=== PATIENT | female | born 1945 | race Caucasian/White ===

== ENCOUNTER 2022-04-03 15:30 | Inpatient (IN) | payer MEDICARE ==
[2022-04-03 16:12] LABS: Basophils % (A) 1 %; Eosinophils # (A) 0.1 k/uL (0-0.7); Eosinophils % (A) 1 %; HCT 32.2 % (34.0-46.0); HGB 11.7 gm/dL (11.4-16.0); Lymphocytes # (A) 1.3 k/uL (1.0-4.8); Lymphocytes % (A) 15 %; MCH 33.5 pg (25.0-35.0); MCHC 36.3 g/dL (31.0-37.0); MCV 92.1 fL (80.0-100.0); Mean Platelet Volume 7.7; Monocytes # (A) 0.3 k/uL (0-1.0); Monocytes % (A) 4 %; Neutrophils # (A) 6.8 k/uL (1.3-7.7); Neutrophils % (A) 78 %; Platelet Count 265 k/uL (150-450); RDW 12.8 % (11.5-15.5); WBC 8.7 k/uL (3.8-10.6)
[2022-04-03 16:21] LABS: INR 0.9 (<1.2); Partial Thromboplastin Time 22.2 sec (22.0-30.0); Prothrombin Time 10.2 sec (9.0-12.0)
[2022-04-03 16:24] LABS: Albumin 4.1 g/dL (3.5-5.0); Magnesium 2.4 mg/dL (1.6-2.3); Phosphorus 4.1 mg/dL (2.5-4.5); Potassium 3.7 mmol/L (3.5-5.1); Total Bilirubin 0.5 mg/dL (0.2-1.3); Total Protein 6.5 g/dL (6.3-8.2)
[2022-04-03 16:25] LABS: Appearance,Urine Cloudy (Clear); Bacteria,Urine Few /hpf; Bilirubin,Urine Negative (Negative); Blood,Urine Negative (Negative); Calcium Oxalate Crystals,Urine Few /hpf; Color,Urine Yellow; Glucose,Urine (UA) Negative (Negative); Granular Casts,Urine 7 /lpf (0); Hyaline Casts,Urine 15 /lpf (0-2); Ketones,Urine Negative (Negative); Leukocyte Esterase,Urine Large (Negative); Mucus,Urine Rare /hpf; Nitrite,Urine Negative (Negative); PH, Urine 5.5 (5.0-8.0); Protein,Urine 1+ (Negative); RBC,Urine 18 /hpf (0-5); Specific Gravity,Urine 1.017 (1.001-1.035); Squamous Epithelial Cell,Urine <1 /hpf (0-4); Urobilinogen,Urine <2.0 mg/dL (<2.0); WBC,Urine 50 /hpf (0-5)
[2022-04-03 16:33] LABS: Calcium 14.5 mg/dL (8.4-10.2)
--- NOTE | 2022-04-03 17:06 | XR ---
EXAMINATION TYPE: XR chest 2V DATE OF EXAM: 04/03/2022 COMPARISON: NONE HISTORY: Weakness TECHNIQUE: 2 views FINDINGS: Heart is normal. Lungs are clear of infiltrate. No heart failure. Thoracic aorta is atherom atous. There is aortic valve surgery. There is slight blunting left costophrenic angle. There are no hilar masses. IMPRESSION: Minimal pleural reaction left lung base. Normal heart.
[2022-04-03] MEDS ORDERED: CALCITONIN INJ 200 UNIT/ML (MDV) VIAL IM ONE (17:27)
[2022-04-03] MEDS ORDERED: SODIUM CHLORIDE 0.9% 1,000 ML IV STA (18:16)
--- NOTE | 2022-04-03 18:16 | ED ---
Weakness HPI - General Chief complaint: Weakness Stated complaint: urogenital Time Seen by Provider: 04/03/22 17:26 Source: patient, RN notes reviewed Mode of arrival: ambulatory Limitations: no limitations - History of Present Illness Initial comments: This is a 76-year-old female who presents to the emergency department for weakness. Her [id number] states that for the last 3-4 weeks, she has been increasingly weak and not wanting to get out of bed. She saw her primary care provider yesterday for a physical, and was told that she had significantly impaired renal function. She was then instructed to come to the emergency department. Patient states that she has baseline kidney problems, however they are much worse than they typically are. We do not have a baseline value for her, although we know is that they are not typically this bad. The patient also denies any known history of hypercalcemia. Additionally, she feels like she may be urinating less than normal. Denies any fevers, chills, sore throat, cough, dyspnea, chest pain, palpitations, abdominal pain, nausea, vomiting, diarrhea, back pain, or headaches. MD Complaint: generalized weakness, lack of energy Onset/Timin -: week(s) - Related Data Home Medications Medication Instructions Recorded Confirmed Cetirizine HCl 10 mg PO DAILY 04/03/22 04/03/22 Cholecalciferol [Vitamin D3 (25 25 mcg PO DAILY 04/03/22 04/03/22 Mcg = 1000 Iu)] Clopidogrel [Plavix] 75 mg PO DAILY 04/03/22 04/03/22 Isosorbide Mononitrate ER [Imdur] 30 mg PO DAILY 04/03/22 04/03/22 Metoprolol Succinate [Metoprolol 25 mg PO DAILY 04/03/22 04/03/22 Succinate ER] Vitamin B Complex 1 cap PO DAILY 04/03/22 04/03/22 Vitamin E (Dl,Tocopheryl Acet) 400 unit PO DAILY 04/03/22 04/03/22 [Vitamin E (400 Iu = 180 mg)] amLODIPine [Norvasc] 5 mg PO DAILY 04/03/22 04/03/22 flaxseed oiL [[place]-3 Flaxseed Oil] 1,000 mg PO DAILY 04/03/22 04/03/22 Allergies Allergy/AdvReac Type Severity Reaction Status Date / Time No Known Allergies Allergy Verified 04/03/22 18:53 Review of Systems ROS Statement: Those systems with pertinent positive or pertinent negative responses have been documented in the HPI. ROS Other: All systems not noted in ROS Statement are negative. Past Medical History Past Medical History: Coronary Artery Disease (CAD), Chest Pain / Angina, Diabetes Mellitus, Myocardial Infarction (ND) Additional Past Medical History / Comment(s): KIDNEY INSUFFICENCY History of Any Multi-Drug Resistant Organisms: None Reported Past Surgical History: Appendectomy, Joint Replacement Additional Past Surgical History / Comment(s): CARDIAC STENTS Past Psychological History: No Psychological Hx Reported Smoking Status: Never smoker Past Alcohol Use History: None Reported Past Drug Use History: None Reported General Exam Limitations: no limitations General appearance: alert, in no apparent distress Head exam: Present: atraumatic, normocephalic, normal inspection Respiratory exam: Present: normal lung sounds bilaterally. Absent: respiratory distress, wheezes, rales, rhonchi, stridor Cardiovascular Exam: Present: regular rate, normal rhythm, normal heart sounds. Absent: systolic murmur, diastolic murmur, rubs, gallop, clicks Neurological exam: Present: alert, oriented X3, CN II-XII intact Psychiatric exam: Present: normal affect, normal mood Skin exam: Present: warm, dry, intact, normal color. Absent: rash Course Vital Signs 04/03/22 04/03/22 15:43 18:51 Temperature 98.6 F Pulse Rate 78 64 Respiratory 20 18 Rate Blood Pressure 133/68 160/86 O2 Sat by Pulse 98 97 Oximetry Medical Decision Making - Medical Decision Making This is a 76-year-old female who presents to the emergency department for weakness. Patient is noted to be in renal failure with a GFR of 10 and creatinine of 4.04. Additionally, she has hypercalcemia with a value of 14.5. She was given 400 units of calcitonin and a liter of IV fluids. Chest x-ray reveals a minimal pleural reaction of the left lung base. I spoke with Dr. Crespo, nephrology, who advised 150 mL of maintenance IV fluids with 60 mg of alendronate. We do not have alendronate available, and the patient was subsequently given 5 mg of Zoledronate. CMP and magnesium will be rechecked in the morning. All vitamin D and calcium supplements will be held for the mean time. PTH and vitamin D level pending. Patient will be admitted to medicine with nephrology consult for management of acute on chronic renal failure and hypercalcemia. This case was discussed in detail with the attending ED physician. Presentation, findings, and treatment plan discussed in detail as well. - Lab Data Result diagrams: 04/03/22 16:04 04/03/22 16:04 Lab Results 04/03/22 04/03/22 04/03/22 Range/Units 16:04 16:04 16:04 WBC 8.7 (3.8-10.6) k/uL RBC 3.50 L (3.80-5.40) m/uL Hgb 11.7 (11.4-16.0) gm/dL Hct 32.2 L (34.0-46.0) % MCV 92.1 (80.0-100.0) fL MCH 33.5 (25.0-35.0) pg MCHC 36.3 (31.0-37.0) g/dL RDW 12.8 (11.5-15.5) % Plt Count 265 (150-450) k/uL MPV 7.7 Neutrophils % 78 % Lymphocytes % 15 % Monocytes % 4 % Eosinophils % 1 % Basophils % 1 % Neutrophils # 6.8 (1.3-7.7) k/uL Lymphocytes # 1.3 (1.0-4.8) k/uL Monocytes # 0.3 (0-1.0) k/uL Eosinophils # 0.1 (0-0.7) k/uL Basophils # 0.0 (0-0.2) k/uL PT 10.2 (9.0-12.0) sec INR 0.9 (<1.2) APTT 22.2 (22.0-30.0) sec Sodium 136 L (137-145) mmol/L Potassium 3.7 (3.5-5.1) mmol/L Chloride 100 (98-107) mmol/L Carbon Dioxide 23 (22-30) mmol/L Anion Gap 13 mmol/L BUN 36 H (7-17) mg/dL Creatinine 4.04 H (0.52-1.04) mg/dL Est GFR (CKD-EPI)AfAm 12 (>60 ml/min/1.73 sqM) Est GFR (CKD-EPI)NonAf 10 (>60 ml/min/1.73 sqM) Glucose 125 H (74-99) mg/dL Calcium 14.5 H* (8.4-10.2) mg/dL Phosphorus 4.1 (2.5-4.5) mg/dL Magnesium 2.4 H (1.6-2.3) mg/dL Total Bilirubin 0.5 (0.2-1.3) mg/dL AST 22 (14-36) U/L ALT 20 (4-34) U/L Alkaline Phosphatase 76 (38-126) U/L Troponin I (0.000-0.034) ng/mL NT-Pro-B Natriuret Pep pg/mL Total Protein 6.5 (6.3-8.2) g/dL Albumin 4.1 (3.5-5.0) g/dL TSH 0.048 L (0.465-4.680) mIU/L Urine Color Urine Appearance (Clear) Urine pH (5.0-8.0) Ur Specific [place] (1.001-1.035) Urine Protein (Negative) Urine Glucose (UA) (Negative) Urine Ketones (Negative) Urine Blood (Negative) Urine Nitrite (Negative) Urine Bilirubin (Negative) Urine Urobilinogen (<2.0) mg/dL Ur Leukocyte Esterase (Negative) Urine RBC (0-5) /hpf Urine WBC (0-5) /hpf Urine WBC Clumps (None) /hpf Ur Squamous Epith Cells (0-4) /hpf Calcium Oxalate Crystal (None) /hpf Urine Bacteria (None) /hpf Hyaline Casts (0-2) /lpf Granular Casts (0) /lpf Urine Mucus (None) /hpf 04/03/22 04/03/22 04/03/22 Range/Units 16:04 16:04 16:11 WBC (3.8-10.6) k/uL RBC (3.80-5.40) m/uL Hgb (11.4-16.0) gm/dL Hct (34.0-46.0) % MCV (80.0-100.0) fL MCH (25.0-35.0) pg MCHC (31.0-37.0) g/dL RDW (11.5-15.5) % Plt Count (150-450) k/uL MPV Neutrophils % % Lymphocytes % % Monocytes % % Eosinophils % % Basophils % % Neutrophils # (1.3-7.7) k/uL Lymphocytes # (1.0-4.8) k/uL Monocytes # (0-1.0) k/uL Eosinophils # (0-0.7) k/uL Basophils # (0-0.2) k/uL PT (9.0-12.0) sec INR (<1.2) APTT (22.0-30.0) sec Sodium (137-145) mmol/L Potassium (3.5-5.1) mmol/L Chloride (98-107) mmol/L Carbon Dioxide (22-30) mmol/L Anion Gap mmol/L BUN (7-17) mg/dL Creatinine (0.52-1.04) mg/dL Est GFR (CKD-EPI)AfAm (>60 ml/min/1.73 sqM) Est GFR (CKD-EPI)NonAf (>60 ml/min/1.73 sqM) Glucose (74-99) mg/dL Calcium (8.4-10.2) mg/dL Phosphorus (2.5-4.5) mg/dL Magnesium (1.6-2.3) mg/dL Total Bilirubin (0.2-1.3) mg/dL AST (14-36) U/L ALT (4-34) U/L Alkaline Phosphatase (38-126) U/L Troponin I <0.012 (0.000-0.034) ng/mL NT-Pro-B Natriuret Pep 95 pg/mL Total Protein (6.3-8.2) g/dL Albumin (3.5-5.0) g/dL TSH (0.465-4.680) mIU/L Urine Color Yellow Urine Appearance Cloudy H (Clear) Urine pH 5.5 (5.0-8.0) Ur Specific [place] 1.017 (1.001-1.035) Urine Protein 1+ H (Negative) Urine Glucose (UA) Negative (Negative) Urine Ketones Negative (Negative) Urine Blood Negative (Negative) Urine Nitrite Negative (Negative) Urine Bilirubin Negative (Negative) Urine Urobilinogen <2.0 (<2.0) mg/dL Ur Leukocyte Esterase Large H (Negative) Urine RBC 18 H (0-5) /hpf Urine WBC 50 H (0-5) /hpf Urine WBC Clumps Occasional H (None) /hpf Ur Squamous Epith Cells <1 (0-4) /hpf Calcium Oxalate Crystal Few H (None) /hpf Urine Bacteria Few H (None) /hpf Hyaline Casts 15 H (0-2) /lpf Granular Casts 7 (0) /lpf Urine Mucus Rare H (None) /hpf - Radiology Data Radiology results: report reviewed, image reviewed Disposition Clinical Impression: Hypercalcemia, Renal failure Disposition: ADMITTED IP TO THIS HOSP
[2022-04-03] MEDS ORDERED: oxyCODONE-APAP 5-325MG 1 EACH TAB PO PRN (18:25)
[2022-04-03] MEDS ORDERED: ACETAMINOPHEN TAB 325 MG TAB PO PRN (18:25)
[2022-04-03] MEDS ORDERED: ONDANSETRON 4 MG/2 ML VIAL IVP PRN (18:25)
[2022-04-03] MEDS ORDERED: NALOXONE 0.4 MG/ML 1 ML VIAL IV PRN (18:25)
[2022-04-03] MEDS ORDERED: ZOLEDRONIC ACID 4 MG in SODIUM CHLORIDE 0.9% 100 ML IV ONE (20:30)
[2022-04-03] MEDS: SODIUM CHLORIDE 0.9% 1,000 ML IV SCH (20:50)
[2022-04-03] MEDS: HYDROcodone/APAP 5-325MG 1 EACH TAB PO PRN (22:13)
[2022-04-04] MEDS: SODIUM CHLORIDE 0.9% 1,000 ML IV SCH ×4 (02:30→21:22)
[2022-04-04] MEDS: HYDROcodone/APAP 5-325MG 1 EACH TAB PO PRN (05:28)
[2022-04-04 06:53] LABS: Glucose,Whole Blood 109 mg/dL (70-110)
[2022-04-04] MEDS: ISOSORBIDE MONONITRATE ER 30 MG TAB.ER.24H PO SCH (08:37)
[2022-04-04] MEDS: amLODIPine 5 MG TAB PO SCH (08:37)
[2022-04-04] MEDS: METOPROLOL SUCCINATE (ER) 25 MG TAB.ER.24H PO SCH (08:37)
[2022-04-04] MEDS: CLOPIDOGREL 75 MG TAB PO SCH (08:37)
[2022-04-04] MEDS ORDERED: LORATADINE 10 MG TAB PO SCH (09:00)
--- NOTE | 2022-04-04 10:46 | P.NPCON ---
History of Present Illness - Reason for Consult acute renal failure, chronic renal failure - History of Present Illness Reason for consultation: Acute kidney injury on chronic kidney disease and hypercalcemia History of present illness: Patient is a 76-year-old female seated in consultation for acute kidney injury on chronic kidney disease and hypercalcemia. Patient recently changed primary care physician and was seen by her new physician yesterday. She had blood work done and was advised to go to the hospital due to renal failure and high calcium level. Patient states she was seen in cylinder batcher out of town and was told she had chronic kidney disease stage IV. Unknown baseline renal function. Creatinine this admission was 4.04 and calcium was 14.5. She denies history of malignancy. She denies use of thiazide diuretics. She does admit to taking 2000 units of vitamin D daily as well as a supplement containing calcium and vitamin D. Blood pressure has not been low. She is on room air. No edema. Has been voiding. No hematuria or dysuria. Denies use of nonsteroidals. She has been feeling weak the last few days. Oral intake has been just fair. Denies chest pain or shortness of breath. She does have history of coronary disease and had a stent placed in 2020. Son is present at bedside. Vital signs are stable. General: No acute distress. HEENT: Head exam is unremarkable. LUNGS: Breath sounds decreased. HEART: Rate and Rhythm are regular. ABDOMEN: Soft, no distention. EXTREMITITES: No edema. Past Medical History Past Medical History: Coronary Artery Disease (CAD), Chest Pain / Angina, Diabetes Mellitus Additional Past Medical History / Comment(s): KIDNEY INSUFFICENCY History of Any Multi-Drug Resistant Organisms: None Reported Past Surgical History: Appendectomy, Joint Replacement Additional Past Surgical History / Comment(s): CARDIAC STENTS Past Anesthesia/Blood Transfusion Reactions: No Reported Reaction Past Psychological History: No Psychological Hx Reported Smoking Status: Never smoker Past Alcohol Use History: None Reported Past Drug Use History: None Reported Medications and Allergies Home Medications Medication Instructions Recorded Confirmed Type Cetirizine HCl 10 mg PO DAILY 04/03/22 04/03/22 History Cholecalciferol [Vitamin D3 (25 25 mcg PO DAILY 04/03/22 04/03/22 History Mcg = 1000 Iu)] Clopidogrel [Plavix] 75 mg PO DAILY 04/03/22 04/03/22 History Isosorbide Mononitrate ER [Imdur] 30 mg PO DAILY 04/03/22 04/03/22 History Metoprolol Succinate [Metoprolol 25 mg PO DAILY 04/03/22 04/03/22 History Succinate ER] Vitamin B Complex 1 cap PO DAILY 04/03/22 04/03/22 History Vitamin E (Dl,Tocopheryl Acet) 400 unit PO DAILY 04/03/22 04/03/22 History [Vitamin E (400 Iu = 180 mg)] amLODIPine [Norvasc] 5 mg PO DAILY 04/03/22 04/03/22 History flaxseed oiL [[place]-3 Flaxseed Oil] 1,000 mg PO DAILY 04/03/22 04/03/22 History Allergies Allergy/AdvReac Type Severity Reaction Status Date / Time No Known Allergies Allergy Verified 04/03/22 18:53 Physical Exam Vitals: Vital Signs Temp Pulse Pulse Resp BP BP Pulse Ox 04/04/22 07:34 98.2 F 58 L 15 152/74 96 04/04/22 01:21 98.9 F 61 17 165/61 96 04/03/22 20:01 97.9 F 67 18 173/76 98 04/03/22 18:51 64 18 160/86 97 04/03/22 15:43 98.6 F 78 20 133/68 98 Intake and Output 04/03/22 04/04/22 04/04/22 22:59 06:59 14:59 Intake Total 220 1840 Balance 220 1840 Intake: Intake, IV Titration 100 1500 Amount Sodium Chloride 0.9% 1, 1500 000 ml @ 150 mls/hr IV . Q6H40M [facility] Rx#:[id number] Zoledronic Acid 4 mg In 100 Sodium Chloride 0.9% 100 ml @ 315 mls/hr IV ONCE ONE Rx#:[id number] Oral 120 340 Other: # Voids 2 2 Weight 58.967 kg Results - Lab Results Most recent lab results Calcium 14.5 mg/dL (8.4-10.2) H* 04/03/22 16:04 Phosphorus 4.1 mg/dL (2.5-4.5) 04/03/22 16:04 Magnesium 2.4 mg/dL (1.6-2.3) H 04/03/22 16:04 04/03/22 16:04 04/03/22 16:04 Assessment and Plan Plan: Assessment: 1. Acute kidney injury secondary to ATN secondary to hypercalcemia. Creatinine 4.04 on admission. UA shows granular casts suggestive of ATN. 2. Chronic kidney disease possibly stage IV. She was following with cylinder batcher out of town. 3. Hypercalcemia secondary to calcium and vitamin D supplementation. Vitamin D level 200. 4. Hypertension with chronic kidney disease. Stable. Plan: Maintain IV fluids. Check further workup for hypercalcemia. Stop calcium and vitamin D supplementation. Status post zoledronic acid given 04/03/2022. Also received dose of calcitonin. Avoid nephrotoxins. Continue to monitor renal function and urine output. Follow-up morning labs. Thank you for the consultation. I will continue to follow the patient with you during her hospital stay.
[2022-04-04 11:52] LABS: African American GFR (CKD) 13.5 (60.0-200.0); Albumin 3.5 g/dL (3.8-4.9); Albumin/Globulin Ratio 1.91 (1.60-3.17); Anion Gap 8.3 mmol/L (10.00-18.00); BUN/Creat Ratio 8.54 Ratio (12.00-20.00); Blood Urea Nitrogen 30.4 mg/dL (9.0-27.0); Calcium 11.7 mg/dL (8.7-10.3); Carbon Dioxide 23.8 mmol/L (20.0-27.5); Globulin 1.9 g/dL (1.6-3.3); Magnesium 2.3 mg/dL (1.5-2.4); Non-African American GFR(CKD) 11.6 (60.0-200.0); Potassium 3.8 mmol/L (3.5-5.5); Total Bilirubin 0.3 mg/dL (0.30-1.20); Total Protein 5.4 g/dL (6.2-8.2)
[2022-04-04] MEDS ORDERED: hydrALAZINE HCL 20 MG/ML 1 ML VIAL IVP PRN (12:08)
[2022-04-04 12:30] LABS: African American GFR (CKD) 14 (>60 ml/min/1.73 sqM); Anion Gap 10 mmol/L; Blood Urea Nitrogen 28 mg/dL (7-17); Calcium 11.5 mg/dL (8.4-10.2); Carbon Dioxide 23 mmol/L (22-30); Chloride 107 mmol/L (98-107); Glucose 107 mg/dL (74-99); Non-African American GFR(CKD) 12 (>60 ml/min/1.73 sqM); Potassium 3.6 mmol/L (3.5-5.1); Sodium 140 mmol/L (137-145)
[2022-04-04] MEDS ORDERED: POTASSIUM CHLORIDE ER 20 MEQ TAB.ER PO STA (15:38)
--- NOTE | 2022-04-04 17:27 | P.HPIM ---
History of Present Illness H&P Date: 04/04/22 Chief Complaint: Nausea This is a pleasant 76-year-old patient who follows with Dr. Marquez. Chronic stable medical conditions include CAD with stent this year, diabetes, CK D stage IV, hypertension, osteoarthritis. Progressive for last 3-4 weeks patient become increasingly weak. Poor appetite. Nausea. Itching. Normally has a bowel movement everyday. Also having some ur inary frequency. Tired rundown. Denies any fever and chills. Patient was given a dose of calcitonin and Zometa in the ER. For hypercalcemia. Review of systems: GEN.: Tired, decreased appetite EYES: None HEENT: None NECK: None RESPIRATORY: None CARDIOVASCULAR: None GASTROINTESTINAL: None GENITOURINARY: Urine frequency MUSCULOSKELETAL: Joint pains LYMPHATICS: None HEMATOLOGICAL: None PSYCHIATRY: None NEUROLOGICAL: None Past medical history to include: CAD stent this year,, hypertension, arthritis, diabetes Social history: No smoking or alcohol. Lives alone. Physical examination: VITAL SIGNS: 98.6, 78, 20, 1 33 x 68, 98% room air GENERAL: BMI 23.8, sitting up in chair awake, tired. EYES: Pupils equal. Conjunctiva palel. HEENT: External appearance of nose and ears normal, oral cavity grossly normal. NECK: JVD not raised; masses not palpable. HEART: First and second heart sounds are normal; no edema. LUNGS: Respiratory rate normal; clear to auscultation. ABDOMEN: Soft, nontender, liver spleen not palpable, no masses palpable. PSYCH: Alert and oriented x3; mood and affect normal. MUSCULOSKELETAL:No Clubbing/cyanosis;muscles-grossly intact, OA NEUROLOGICAL: Cranial nerves grossly intact; no facial asymmetry, power and sensation grossly intact. LYMPHATICS: No lymph nodes palpable in the axilla and neck INVESTIGATIONS, reviewed in the clinical context: WBC 8.7 hemoglobin 11.7 platelets 265 potassium 3.6 BUN 28 creatinine 3.53 April 03: Creatinine 4.04. Calcium 14.5 ionized calcium 7.8 Vitamin D 25-hydroxy 200 TSH 0.048 UA: Protein 1+, leukoesterase, WBC, bacteria EKG tracing personally reviewed by me-normal sinus rhythm. Chest x-ray film personally reviewed by me-no obvious infiltrates Assessment and plan: -Acute on chronic kidney disease from poor oral intake IV fluids. Nephrology consultation. KUMAR- -Severe hypercalcemia, patient is on vitamin D3, dehydrated: Patient receive Zometa and calcitonin in the ER. IV fluids -Chronic kidney disease stage IV from nephrosclerosis Patient's son cc this was as per the previous family doctor. We do not have a baseline creatinine. -CAD with history of stent earlier this year Plavix -Essential hypertension Toprol-XL, amlodipine -Primary osteoarthritis Tylenol -Nausea secondary to uremia from renal failure -Full code Stop vitamin D supplement. Resume home medications. IV fluids. Renal diet. Care was discussed with the patient and son at the bedside. Questions answered. Nephrology consulted. Past Medical History Past Medical History: Coronary Artery Disease (CAD), Chest Pain / Angina, Diabetes Mellitus Additional Past Medical History / Comment(s): KIDNEY INSUFFICENCY History of Any Multi-Drug Resistant Organisms: None Reported Past Surgical History: Appendectomy, Joint Replacement Additional Past Surgical History / Comment(s): CARDIAC STENTS Past Anesthesia/Blood Transfusion Reactions: No Reported Reaction Past Psychological History: No Psychological Hx Reported Smoking Status: Never smoker Past Alcohol Use History: None Reported Past Drug Use History: None Reported Medications and Allergies Home Medications Medication Instructions Recorded Confirmed Type Cetirizine HCl 10 mg PO DAILY 04/03/22 04/03/22 History Cholecalciferol [Vitamin D3 (25 25 mcg PO DAILY 04/03/22 04/03/22 History Mcg = 1000 Iu)] Clopidogrel [Plavix] 75 mg PO DAILY 04/03/22 04/03/22 History Isosorbide Mononitrate ER [Imdur] 30 mg PO DAILY 04/03/22 04/03/22 History Metoprolol Succinate [Metoprolol 25 mg PO DAILY 04/03/22 04/03/22 History Succinate ER] Vitamin B Complex 1 cap PO DAILY 04/03/22 04/03/22 History Vitamin E (Dl,Tocopheryl Acet) 400 unit PO DAILY 04/03/22 04/03/22 History [Vitamin E (400 Iu = 180 mg)] amLODIPine [Norvasc] 5 mg PO DAILY 04/03/22 04/03/22 History flaxseed oiL [[place]-3 Flaxseed Oil] 1,000 mg PO DAILY 04/03/22 04/03/22 History Allergies Allergy/AdvReac Type Severity Reaction Status Date / Time No Known Allergies Allergy Verified 04/03/22 18:53 Physical Exam Vitals: Vital Signs Temp Pulse Pulse Resp BP BP Pulse Ox 04/04/22 07:34 98.2 F 58 L 15 152/74 96 04/04/22 01:21 98.9 F 61 17 165/61 96 04/03/22 20:01 97.9 F 67 18 173/76 98 04/03/22 18:51 64 18 160/86 97 04/03/22 15:43 98.6 F 78 20 133/68 98 Intake and Output 04/03/22 04/04/22 04/04/22 22:59 06:59 14:59 Intake Total 220 1840 Balance 220 1840 Intake: Intake, IV Titration 100 1500 Amount Sodium Chloride 0.9% 1, 1500 000 ml @ 150 mls/hr IV . Q6H40M [facility] Rx#:[id number] Zoledronic Acid 4 mg In 100 Sodium Chloride 0.9% 100 ml @ 315 mls/hr IV ONCE ONE Rx#:[id number] Oral 120 340 Other: # Voids 2 2 Weight 58.967 kg Results CBC & Chem 7: 04/03/22 16:04 04/04/22 11:33 Labs: Abnormal Lab Results - Last 24 Hours (Table) 04/03/22 04/03/22 04/03/22 Range/Units 16:04 16:04 16:04 RBC 3.50 L (3.80-5.40) m/uL Hct 32.2 L (34.0-46.0) % Sodium 136 L (137-145) mmol/L BUN 36 H (7-17) mg/dL Creatinine 4.04 H (0.52-1.04) mg/dL Glucose 125 H (74-99) mg/dL Calcium 14.5 H* (8.4-10.2) mg/dL Ionized Calcium [place] (4.5-5.3) mg/dL Magnesium 2.4 H (1.6-2.3) mg/dL Vitamin D 25-Hydroxy 200.0 H (30.0-100.0) ng/mL TSH 0.048 L (0.465-4.680) mIU/L Urine Appearance (Clear) Urine Protein (Negative) Ur Leukocyte Esterase (Negative) Urine RBC (0-5) /hpf Urine WBC (0-5) /hpf Urine WBC Clumps (None) /hpf Calcium Oxalate Crystal (None) /hpf Urine Bacteria (None) /hpf Hyaline Casts (0-2) /lpf Urine Mucus (None) /hpf 04/03/22 04/03/22 Range/Units 16:11 18:51 RBC (3.80-5.40) m/uL Hct (34.0-46.0) % Sodium (137-145) mmol/L BUN (7-17) mg/dL Creatinine (0.52-1.04) mg/dL Glucose (74-99) mg/dL Calcium (8.4-10.2) mg/dL Ionized Calcium [place] 7.8 H* (4.5-5.3) mg/dL Magnesium (1.6-2.3) mg/dL Vitamin D 25-Hydroxy (30.0-100.0) ng/mL TSH (0.465-4.680) mIU/L Urine Appearance Cloudy H (Clear) Urine Protein 1+ H (Negative) Ur Leukocyte Esterase Large H (Negative) Urine RBC 18 H (0-5) /hpf Urine WBC 50 H (0-5) /hpf Urine WBC Clumps Occasional H (None) /hpf Calcium Oxalate Crystal Few H (None) /hpf Urine Bacteria Few H (None) /hpf Hyaline Casts 15 H (0-2) /lpf Urine Mucus Rare H (None) /hpf Microbiology - Last 24 Hours (Table) 04/03/22 16:11 Urine Culture - Preliminary Urine,Voided Thrombosis Risk Factor Assmnt - Choose All That Apply Other Risk Factors: Yes Each Risk Factor Represents 3 Points: Age 75 years or older Thrombosis Risk Factor Assessment Total Risk Factor Score: 3 Thrombosis Risk Factor Assessment Level: Moderate Risk
[2022-04-04] MEDS: ENOXAPARIN 30 MG/0.3 ML SYRINGE SQ SCH (18:01)
[2022-04-04 21:28] LABS: Protein, Total 5.5 g/dL (6.2-8.2)
[2022-04-05] MEDS: SODIUM CHLORIDE 0.9% 1,000 ML IV SCH ×3 (05:09→18:02)
--- NOTE | 2022-04-05 09:02 | CDI ---
Documentation Clarification Form Date: 04/05/2022 08:54:33 AM From: Tahmina Sheppard CCS, CCDS Admit Date: 04/03/2022 06:26:00 PM Patient Name: Judi Tipton Visit Number: [id number] Discharge Date: ATTENTION: The Clinical Documentation Specialists (CDI) and [facility] Coding Staff appreciate your assistance in clarifying documentation. Please respond to the clarification below the line at the bottom and electronically sign. The CDI & [facility] Coding staff will review the response and follow-up if needed. Please note: Queries are made part of the Legal Health Record. If you have any questions, please contact the author of this message via ITS. Dr. Scotty Carpio: Your patient had a Sodium level of 136 on admission 04/03, now stable @ 141, 140 on 04/04. Please clarify if there is an additional diagnosis and/or clinical significance related to this lab value. History/Risk Factors per the 04/04 H/P: CAD with stent this year, DM II, CKD IV, Hypertension, Primary Osteoarthritis. Clinical indicators: Presented to the ED on 04/03 with Weakness x3-4 weeks. Saw her PCP yesterday for a physical and was told she had significantly impaired renal function and sent to ED. Urinating less than normal. Admit with Hypercalcemia, Renal Failure. 04/03 LAB: Na 136, BUN 36, Creatinine 4.04, GFR 10. 04/04 LAB: Na 141, 140; Anion Gap 8.30, 10; BUN 30.4, 28; Creatinine 3.6, 3.53; GFR 11.6, 12. Treatment 04/03: IM Miacalcin, IV Na Chl 1,000 mls @ 999 mls/hr q1H. 04/03: IV Zoledronic Acid 4 mg in Na Chl 105 mls @ 315 mls/hr x1. Is there an additional diagnosis and/or clinical significance related to the above lab result/information? [ ] Hyponatremia [ ] Abnormal Lab Value, not clinically significant [ ] Other condition, please specify: [ ] Unable to determine (Template Last Revised: August 2020) No change in documentation needed MTDD
[2022-04-05] MEDS: ISOSORBIDE MONONITRATE ER 30 MG TAB.ER.24H PO SCH (09:22)
[2022-04-05] MEDS: METOPROLOL SUCCINATE (ER) 25 MG TAB.ER.24H PO SCH (09:22)
[2022-04-05] MEDS: amLODIPine 5 MG TAB PO SCH (09:22)
[2022-04-05] MEDS: CLOPIDOGREL 75 MG TAB PO SCH (09:22)
[2022-04-05 10:50] LABS: Free Kappa Lt Chain Qnt, Serum 2.99 mg/dL (0.33-1.94); Free Lambda Lt Chain Qnt, Seru 3.17 mg/dL (0.57-2.63)
--- NOTE | 2022-04-05 13:04 | P.PN ---
Subjective Patient is seen for follow-up for hypercalcemia from vitamin D toxicity. Calcium was down to 11.5 yesterday with serum creatinine down to 3.5 mg/dL. Labs are pending from today Maintained on IV fluids No significant complaints today. Objective - Vital Signs Vital signs: Vital Signs Temp 98.9 F 04/05/22 12:30 Pulse 57 L 04/05/22 12:30 Resp 21 04/05/22 12:30 BP 120/57 04/05/22 12:30 Pulse Ox 98 04/05/22 08:00 FiO2 Intake & Output 04/04/22 04/05/22 04/05/22 18:59 06:59 18:59 Intake Total 1200 1840 Balance 1200 1840 Intake: Intake, IV Titration 1200 1600 Amount Sodium Chloride 0.9% 1, 1200 1600 000 ml @ 150 mls/hr IV . Q6H40M [facility] Rx#:[id number] Oral 240 Other: Voiding Method Toilet # Voids 1 - Exam Awake, comfortable, not in any acute distress Examination of the heart S1 and S2 Examination of the lungs bilateral breath sounds are heard Abdomen is soft nontender Examination of lower extremity shows no significant edema [employer] exam grossly intact - Labs CBC & Chem 7: 04/03/22 16:04 04/04/22 11:33 Labs: Abnormal Lab Results - Last 24 Hours (Table) 04/03/22 04/04/22 Range/Units 18:51 11:33 Total Protein (PEP) 5.5 L (6.2-8.2) g/dL PTH Intact 8.0 L (14.0-72.0) pg/mL Free [place] LC, Quant 2.99 H (0.33-1.94) mg/dL Free Lambda LC, Quant 3.17 H (0.57-2.63) mg/dL Microbiology - Last 24 Hours (Table) 04/03/22 16:11 Urine Culture - Preliminary Urine,Voided Gram Neg Bacilli Assessment and Plan Assessment: 1. Acute kidney injury secondary to ATN secondary to hypercalcemia. Creatinine 4.04 on admission. UA shows granular casts suggestive of ATN. 2. Chronic kidney disease possibly stage IV. She was following with field marketing manager out of town. 3. Hypercalcemia secondary to calcium and vitamin D supplementation. Vitamin D level 200. 4. Hypertension with chronic kidney disease. Stable. Plan: Follow-up on labs from today Continue to hold off on calcium and vitamin D supplementation. Follow-up as outpatient in 1-2 weeks post discharge. Patient would like to follow-up at our [place] office.
--- NOTE | 2022-04-05 13:19 | P.PN ---
Progress Note - Text Progress Note Date: 04/05/22 Chief Complaint: Nausea This is a pleasant 76-year-old patient who follows with Dr. Marquez. Chronic stable medical conditions include CAD with stent this year, diabetes, CK D stage IV, hypertension, osteoarthritis. Progressive for last 3-4 weeks patient become increasingly weak. Poor appetite. Nausea. Itching. Normally has a bowel movement everyday. Also having some urinary frequency. Tired rundown. Denies any fever and chills. Patient was given a dose of calcitonin and Zometa in the ER. For hypercalcemia. Admitted with hypercalcemia, acute kidney injury on CAD. IV fluids. 04/05/2022: Up in a chair. Some improvement in diet. Some of the bedside. Getting normal saline. Patient will follow-up at the [facility]. UA finding suggestive of ATN. Labs pending from today. Active Medications Acetaminophen (Acetaminophen Tab 325 Mg Tab) 650 mg PO Q6HR PRN PRN Reason: Mild Pain or Fever > 100.5 Amlodipine Besylate (Amlodipine 5 Mg Tab) 5 mg PO DAILY [facility] Last Admin: 04/05/22 09:22 Dose: 5 mg Clopidogrel Bisulfate (Clopidogrel 75 Mg Tab) 75 mg PO DAILY [facility] Last Admin: 04/05/22 09:22 Dose: 75 mg Enoxaparin Sodium (Enoxaparin 30 Mg/0.3 Ml Syringe) 30 mg SQ Q24H [facility] Last Admin: 04/04/22 18:01 Dose: 30 mg Hydralazine HCl (Hydralazine Hcl 20 Mg/Ml 1 Ml Vial) 10 mg IVP Q6HR PRN PRN Reason: Blood Pressure - High Sodium Chloride (Saline 0.9%) 1,000 mls @ 150 mls/hr IV .Q6H40M [facility] Last Admin: 04/05/22 05:09 Dose: Not Given Isosorbide Mononitrate (Isosorbide Mononitrate Er 30 Mg Tab.Er.24h) 30 mg PO DAILY [facility] Last Admin: 04/05/22 09:22 Dose: 30 mg Metoprolol Succinate (Metoprolol Succinate (Er) 25 Mg Tab.Er.24h) 25 mg PO DAILY [facility] Last Admin: 04/05/22 09:22 Dose: 25 mg Naloxone HCl (Naloxone 0.4 Mg/Ml 1 Ml Vial) 0.2 mg IV Q2M PRN PRN Reason: Opioid Reversal Ondansetron HCl (Ondansetron 4 Mg/2 Ml Vial) 4 mg IVP Q8HR PRN PRN Reason: Nausea And Vomiting Past medical history to include: CAD stent this year,, hypertension, arthritis, diabetes Social history: No smoking or alcohol. Lives alone. Physical examination: VITAL SIGNS: 98.9, 57, 21, 120/57, 98% room air GENERAL: , sitting up in chair awake, having breakfast EYES: Pupils equal. Conjunctiva palel. HEENT: External appearance of nose and ears normal, oral cavity grossly normal. NECK: JVD not raised; masses not palpable. HEART: First and second heart sounds are normal; no edema. LUNGS: Respiratory rate normal; clear to auscultation. ABDOMEN: Soft, nontender, liver spleen not palpable, no masses palpable. PSYCH: Alert and oriented x3; mood and affect normal. MUSCULOSKELETAL:No Clubbing/cyanosis;muscles-grossly intact, OA INVESTIGATIONS, reviewed in the clinical context: WBC 8.7 hemoglobin 11.7 platelets 265 potassium 3.6 BUN 28 creatinine 3.53 April 03: Creatinine 4.04. Calcium 14.5 ionized calcium 7.8 Vitamin D 25-hydroxy 200 TSH 0.048 UA: Protein 1+, leukoesterase, WBC, bacteria EKG tracing personally reviewed by me-normal sinus rhythm. Chest x-ray film personally reviewed by me-no obvious infiltrates Assessment and plan: -Acute on chronic kidney disease from poor oral intake IV fluids. Nephrology consultation. KUMAR- -Severe hypercalcemia, patient is on vitamin D3, dehydrated: received Zometa and calcitonin in the ER. IV fluids -Chronic kidney disease stage IV from nephrosclerosis Patient's son said patient had stage IV kidney disease per previous doctor. We do not have a baseline creatinine. -CAD with history of stent earlier this year Plavix -Essential hypertension Toprol-XL, amlodipine -Primary osteoarthritis Tylenol -Nausea secondary to uremia from renal failure -Full code Continue IV fluids. Renal diet. Did like to follow up with nephrology at [facility]. Several questions were answered. Labs from today pending.
[2022-04-05 14:03] LABS: African American GFR (CKD) 15 (>60 ml/min/1.73 sqM); Anion Gap 8 mmol/L; Blood Urea Nitrogen 27 mg/dL (7-17); Calcium 9.9 mg/dL (8.4-10.2); Carbon Dioxide 21 mmol/L (22-30); Chloride 109 mmol/L (98-107); Glucose 104 mg/dL (74-99); Non-African American GFR(CKD) 13 (>60 ml/min/1.73 sqM); Potassium 3.8 mmol/L (3.5-5.1); Sodium 138 mmol/L (137-145)
[2022-04-05] MEDS: ENOXAPARIN 30 MG/0.3 ML SYRINGE SQ SCH (17:42)
[2022-04-06] MEDS: SODIUM CHLORIDE 0.9% 1,000 ML IV SCH ×3 (05:04→22:16)
[2022-04-06 07:05] LABS: Glucose,Whole Blood 83 mg/dL (70-110)
[2022-04-06 08:20] LABS: African American GFR (CKD) 16 (>60 ml/min/1.73 sqM); Anion Gap 7 mmol/L; Blood Urea Nitrogen 25 mg/dL (7-17); Calcium 8.8 mg/dL (8.4-10.2); Carbon Dioxide 18 mmol/L (22-30); Chloride 115 mmol/L (98-107); Glucose 77 mg/dL (74-99); Non-African American GFR(CKD) 14 (>60 ml/min/1.73 sqM); Potassium 3.7 mmol/L (3.5-5.1); Sodium 140 mmol/L (137-145)
--- NOTE | 2022-04-06 11:14 | P.PN ---
Subjective Patient is seen in follow-up for acute kidney injury on chronic kidney disease. Renal function improved. Calcium level normal. Denies chest pain or shortness of breath. Good urine output. Hemodynamically stable. No active complaints. Vital signs are stable. General: Awake. No acute distress. HEENT: Head exam is unremarkable. LUNGS: Breath sounds decreased. HEART: Rate and Rhythm are regular. ABDOMEN: Soft, no distention. EXTREMITITES: No edema. Objective - Vital Signs Vital signs: Vital Signs Temp 97.8 F 04/06/22 07:14 Pulse 57 L 04/06/22 08:59 Resp 13 04/06/22 08:59 BP 144/67 04/06/22 07:14 Pulse Ox 98 04/05/22 19:37 FiO2 Intake & Output 04/05/22 04/06/22 04/06/22 18:59 06:59 18:59 Intake Total 240 2200 450 Balance 240 2200 450 Intake: Intake, IV Titration 1600 Amount Sodium Chloride 0.9% 1, 1600 000 ml @ 150 mls/hr IV . Q6H40M [facility] Rx#:[id number] Oral 240 600 450 Other: Voiding Method Toilet Toilet # Voids 2 3 1 - Labs CBC & Chem 7: 04/03/22 16:04 04/06/22 07:06 Labs: Abnormal Lab Results - Last 24 Hours (Table) 04/05/22 04/06/22 Range/Units 13:24 07:06 Chloride 109 H 115 H (98-107) mmol/L Carbon Dioxide 21 L 18 L (22-30) mmol/L BUN 27 H 25 H (7-17) mg/dL Creatinine 3.20 H 3.04 H (0.52-1.04) mg/dL Glucose 104 H (74-99) mg/dL Microbiology - Last 24 Hours (Table) 04/03/22 16:11 Urine Culture - Final Urine,Voided Escherichia coli Assessment and Plan Plan: Assessment: 1. Acute kidney injury secondary to ATN secondary to hypercalcemia. Creatinine 4.04 on admission - 3.04 today. UA shows granular casts suggestive of ATN. 2. Chronic kidney disease possibly stage IV. She was following with client account assistant out of town. 3. Hypercalcemia secondary to calcium and vitamin D supplementation. PTH low at 8. Vitamin D level 200. 1,25 D3 level 59. Mena 2.99, Lambda 3.17. 4. Hypertension with chronic kidney disease. Stable. 5. Metabolic acidosis secondary to acute kidney injury and IV fluids. On oral bicarbonate. 6. E. coli UTI. Plan: Decrease rate of normal saline to 50 mL an hour. Follow-up pending workup for hypercalcemia. Continue to hold off on calcium and vitamin D supplementation. Status post zoledronic acid given 04/03/2022. Also received dose of calcitonin. Avoid nephrotoxins. Check renal ultrasound. Add Cipro for UTI. Continue to monitor renal function and urine output. Follow up outpatient 1 week post discharge.
[2022-04-06 11:28] LABS: Glucose,Whole Blood 134 mg/dL (70-110)
[2022-04-06 12:33] LABS: Albumin 3.35 g/dL (3.80-4.90); Gamma Globulin 0.58 g/dL (0.70-1.50)
[2022-04-06] MEDS: amLODIPine 5 MG TAB PO SCH (12:44)
[2022-04-06] MEDS: SODIUM BICARBONATE TAB 650 MG TAB PO SCH ×3 (12:44→22:16)
[2022-04-06] MEDS: CLOPIDOGREL 75 MG TAB PO SCH (12:44)
[2022-04-06] MEDS: CIPROFLOXACIN HCL 500 MG TAB PO SCH (12:45)
[2022-04-06] MEDS: ISOSORBIDE MONONITRATE ER 30 MG TAB.ER.24H PO SCH (12:45)
--- NOTE | 2022-04-06 14:01 | P.PN ---
Progress Note - Text Progress Note Date: 04/06/22 Chief Complaint: Nausea This is a pleasant 76-year-old patient who follows with Dr. Marquez. Chronic stable medical conditions include CAD with stent this year, diabetes, CK D stage IV, hypertension, osteoarthritis. Progressive for last 3-4 weeks patient become increasingly weak. Poor appetite. Nausea. Itching. Normally has a bowel movement everyday. Also having some urinary frequency. Tired rundown. Denies any fever and chills. Patient was given a dose of calcitonin and Zometa in the ER. For hypercalcemia. Admitted with hypercalcemia, acute kidney injury on CAD. IV fluids. 04/05/2022: Up in a chair. Some improvement in diet. Some of the bedside. Getting normal saline. Patient will follow-up at the [facility]. UA finding suggestive of ATN. Labs pending from today. 04/06/2022: Slight further improvement in creatinine. Saline at 50 mL an hour. Free And lambda light chain positive. Hematology consulted. Further blood work pending. Active Medications Acetaminophen (Acetaminophen Tab 325 Mg Tab) 650 mg PO Q6HR PRN PRN Reason: Mild Pain or Fever > 100.5 Amlodipine Besylate (Amlodipine 5 Mg Tab) 5 mg PO DAILY [facility] Last Admin: 04/06/22 12:44 Dose: 5 mg Ciprofloxacin (Ciprofloxacin Hcl 500 Mg Tab) 500 mg PO DAILY [facility]; Protocol Stop: 04/08/22 09:01 Last Admin: 04/06/22 12:45 Dose: 500 mg Clopidogrel Bisulfate (Clopidogrel 75 Mg Tab) 75 mg PO DAILY [facility] Last Admin: 04/06/22 12:44 Dose: 75 mg Enoxaparin Sodium (Enoxaparin 30 Mg/0.3 Ml Syringe) 30 mg SQ Q24H [facility] Last Admin: 04/05/22 17:42 Dose: 30 mg Hydralazine HCl (Hydralazine Hcl 20 Mg/Ml 1 Ml Vial) 10 mg IVP Q6HR PRN PRN Reason: Blood Pressure - High Sodium Chloride (Saline 0.9%) 1,000 mls @ 50 mls/hr IV .Q20H [facility] Last Admin: 04/06/22 13:06 Dose: 50 mls/hr Isosorbide Mononitrate (Isosorbide Mononitrate Er 30 Mg Tab.Er.24h) 30 mg PO DAILY [facility] Last Admin: 04/06/22 12:45 Dose: 30 mg Metoprolol Succinate (Metoprolol Succinate (Er) 25 Mg Tab.Er.24h) 25 mg PO DAILY [facility] Last Admin: 04/05/22 09:22 Dose: 25 mg Naloxone HCl (Naloxone 0.4 Mg/Ml 1 Ml Vial) 0.2 mg IV Q2M PRN PRN Reason: Opioid Reversal Ondansetron HCl (Ondansetron 4 Mg/2 Ml Vial) 4 mg IVP Q8HR PRN PRN Reason: Nausea And Vomiting Sodium Bicarbonate (Sodium Bicarbonate Tab 650 Mg Tab) 650 mg PO TID [facility] Last Admin: 04/06/22 12:44 Dose: 650 mg Past medical history to include: CAD stent this year,, hypertension, arthritis, diabetes Social history: No smoking or alcohol. Lives alone. Physical examination: VITAL SIGNS: 97.8, 56, 13, 144/67, 98% room air GENERAL: , sitting up in chair , comfortable EYES: Pupils equal. Conjunctiva palel. HEENT: External appearance of nose and ears normal, oral cavity grossly normal. NECK: JVD not raised; masses not palpable. HEART: First and second heart sounds are normal; no edema. LUNGS: Respiratory rate normal; clear to auscultation. ABDOMEN: Soft, nontender, liver spleen not palpable, no masses palpable. PSYCH: Alert and oriented x3; mood and affect normal. MUSCULOSKELETAL:No Clubbing/cyanosis;muscles-grossly intact, OA INVESTIGATIONS, reviewed in the clinical context: April 06: Potassium 3.7 BUN 25 creatinine 3.04 Free [place] light chain 2.99, free lambda light chain 3.17. Vitamin D 125 dihydroxy 59., Globulin is low at 0.58 WBC 8.7 hemoglobin 11.7 platelets 265 potassium 3.6 BUN 28 creatinine 3.53 April 03: Creatinine 4.04. Calcium 14.5 ionized calcium 7.8 Vitamin D 25-hydroxy 200 TSH 0.048 UA: Protein 1+, leukoesterase, WBC, bacteria EKG tracing personally reviewed by me-normal sinus rhythm. Chest x-ray film personally reviewed by me-no obvious infiltrates Assessment and plan: -Acute on chronic kidney disease from poor oral intake IV fluids. Nephrology following. KUMAR- -Severe hypercalcemia, patient is on vitamin D3, dehydrated: Corrected received Zometa and calcitonin in the ER. IV fluids -Chronic kidney disease stage IV from nephrosclerosis Patient's son said patient had stage IV kidney disease per previous doctor. We do not have a baseline creatinine. -CAD with history of stent earlier this year Plavix -Essential hypertension Toprol-XL, amlodipine -Primary osteoarthritis Tylenol -Nausea secondary to uremia from renal failure: Better -Full code Decrease IV fluids to 50 mL an hour. Consult hematology. Hopefully patient given discharged tomorrow.
[2022-04-06] MEDS: METOPROLOL SUCCINATE (ER) 25 MG TAB.ER.24H PO SCH (14:13)
[2022-04-06 16:23] LABS: Glucose,Whole Blood 91 mg/dL (70-110)
--- NOTE | 2022-04-06 17:03 | US ---
EXAMINATION TYPE: US kidneys/renal and bladder DATE OF EXAM: 04/06/2022 COMPARISON: NONE CLINICAL HISTORY: laquita. EXAM MEASUREMENTS: Right Kidney: 8.1 x 3.6 x 4.5 cm Left Kidney: 7.5 x 4.1 x 3.3 cm Right Kidney: Atrophic. Echogenic foci mid pole 0.8 x 0.3 x 1.0cm. Stone vs. calcified vessel Left Kidney: Atrophic. Echogenic foci mid pole 0.8 x 0.3 x 0.8cm. Stone vs. calcified vessel Bladder: Not visualized. Patient just voided prior to exam. Bilateral Jets seen: No IMPRESSION: Kidneys are small and consistent with atrophy. No evidence of solid renal mass or obstruction. There is evidence of vascular calcification. Nonobstructing renal calculi are possible.
[2022-04-06] MEDS: ENOXAPARIN 30 MG/0.3 ML SYRINGE SQ SCH (18:08)
[2022-04-06 20:40] LABS: Glucose,Whole Blood 93 mg/dL (70-110)
[2022-04-06 22:06] VITALS: RESP 16
--- NOTE | 2022-04-06 22:52 | P.CONS ---
History of Present Illness - Reason for Consult Consult date: 04/06/22 hypercalcemia, abn light chain Requesting physician: Scotty Carpio - Chief Complaint weakness - History of Present Illness Pt is a very pleasant 76 yo female with a PMH CAD with stent, DM, CKD, HTN and QA that we have been asked to evaluate becasue of elevated light chains and hypercalcemia, concerns for malignant process. Over the last few weeks pt appetite has decreased, she has become increasingly weaker, she noted some constipation, lack of energy. She had labs with her PCP and was directed to be seen at the hospital for hypercalcemia. On admit her Ca++ was 14.5, she received calcitonin and Zometa. She denied fevers, sweats, difficulty swallowing, LAD/LN swellings, changes in breathing, palpitations, chest pain, bone pain, abd pain or cramping, bleeding, black or bloody stool. She is ambulating around her room today. K/L light chains lightly elevated, near normal ratio, SPEP/immunofixation pending. Cr elevated, Hgb normal. Review of Systems 10 point ROS is neg except as stated in HPI Past Medical History Past Medical History: Coronary Artery Disease (CAD), Chest Pain / Angina, D iabetes Mellitus Additional Past Medical History / Comment(s): KIDNEY INSUFFICENCY History of Any Multi-Drug Resistant Organisms: None Reported Past Surgical History: Appendectomy, Joint Replacement Additional Past Surgical History / Comment(s): CARDIAC STENTS Past Anesthesia/Blood Transfusion Reactions: No Reported Reaction Past Psychological History: No Psychological Hx Reported Smoking Status: Never smoker Past Alcohol Use History: None Reported Past Drug Use History: None Reported Medications and Allergies Home Medications Medication Instructions Recorded Confirmed Type Cetirizine HCl 10 mg PO DAILY 04/03/22 04/03/22 History Cholecalciferol [Vitamin D3 (25 25 mcg PO DAILY 04/03/22 04/03/22 History Mcg = 1000 Iu)] Clopidogrel [Plavix] 75 mg PO DAILY 04/03/22 04/03/22 History Isosorbide Mononitrate ER [Imdur] 30 mg PO DAILY 04/03/22 04/03/22 History Metoprolol Succinate [Metoprolol 25 mg PO DAILY 04/03/22 04/03/22 History Succinate ER] Vitamin B Complex 1 cap PO DAILY 04/03/22 04/03/22 History Vitamin E (Dl,Tocopheryl Acet) 400 unit PO DAILY 04/03/22 04/03/22 History [Vitamin E (400 Iu = 180 mg)] amLODIPine [Norvasc] 5 mg PO DAILY 04/03/22 04/03/22 History flaxseed oiL [[place]-3 Flaxseed Oil] 1,000 mg PO DAILY 04/03/22 04/03/22 History Allergies Allergy/AdvReac Type Severity Reaction Status Date / Time No Known Allergies Allergy Verified 04/03/22 18:53 Physical Exam Vitals: Vital Signs Temp Pulse Pulse Resp BP Pulse Ox 04/06/22 14:11 97.8 F 68 17 145/69 99 04/06/22 08:59 57 L 13 04/06/22 07:14 97.8 F 56 L 13 144/67 04/05/22 19:37 98.1 F 58 L 19 144/66 98 Intake and Output 04/06/22 04/06/22 04/06/22 06:59 14:59 22:59 Intake Total 1960 450 Balance 1959 450 Intake: Intake, IV Titration 1600 Amount Sodium Chloride 0.9% 1, 1600 000 ml @ 50 mls/hr IV . Q20H [facility] Rx#:[id number] Oral 360 450 Other: Voiding Method Toilet # Voids 3 1 # Bowel Movements 1 - Constitutional General appearance: average body habitus, cooperative, no acute distress - EENT Eyes: anicteric sclerae, EOMI ENT: hearing grossly normal - Neck Neck: no lymphadenopathy - Respiratory Respiratory: bilateral: CTA - Cardiovascular Rhythm: regular Heart sounds: normal: S1, S2 Abnormal Heart Sounds: no systolic murmur, no diastolic murmur, no rub, no S3 Gallop, no S4 Gallop, no click, no other leg Peripheral Edema: bilateral: None - Gastrointestinal General gastrointestinal: no absent bowel sounds, no decreased bowel sounds, no distended, no hepatomegaly, no hyperactive bowel sounds, normal bowel sounds, no organomegaly, no rigid, no scaphoid, soft, no splenomegaly, no tenderness, no umbilical hernia, no ventral hernia - Integumentary Integumentary: normal - Neurologic Neurologic: CNII-XII intact - Musculoskeletal Musculoskeletal: strength equal bilaterally - Psychiatric Psychiatric: A&O x's 3, appropriate affect, intact judgment & insight Results CBC & Chem 7: 04/03/22 16:04 04/06/22 07:06 Labs: Abnormal Lab Results - Last 24 Hours (Table) 04/04/22 04/06/22 04/06/22 Range/Units 11:33 07:06 11:25 Chloride 115 H (98-107) mmol/L Carbon Dioxide 18 L (22-30) mmol/L BUN 25 H (7-17) mg/dL Creatinine 3.04 H (0.52-1.04) mg/dL POC Glucose (mg/dL) 134 H (70-110) mg/dL Albumin (PEP) 3.35 L (3.80-4.90) g/dL Beta Globulins 0.51 L (0.60-1.30) g/dL Gamma Globulins 0.58 L (0.70-1.50) g/dL Microbiology - Last 24 Hours (Table) 04/03/22 16:11 Urine Culture - Final Urine,Voided Escherichia coli Chest x-ray: report reviewed Assessment and Plan (1) Hypercalcemia Current Visit: Yes Status: Acute Code(s): E83.52 - HYPERCALCEMIA SNOMED Code(s): 24367748 (2) Renal failure Current Visit: Yes Status: Acute Code(s): N19 - UNSPECIFIED KIDNEY FAILURE SNOMED Code(s): 39990738 Plan: Elevated calcium. This has corrected with administration of zometa and calcitonin. K/L light chains slightly elevated, SPEP and immunofixation resulted after pt seen and these are neg for a paraproteinemia. Pt takes a vit D supplement-thinks it may have calcium in it. Unknown baseline renal function. No history of cancer. Her PTH is low, vit D 25 hydroxy is double normal. Possible vit D overdose? Pt has no other gross symptoms suggestive of malignancy. Supplements held. Nephrology is following. Her calcium is normal today, renal function is improving. Cont to monitor labs for now. PTRP ordered. Additional testing recommendations to follow. Attests: I have seen and examined pt, performed H&P, developed impression and plan of care. Discussed with dictator. Agree with dictation, documented as a scribe.
[2022-04-07 07:20] LABS: Glucose,Whole Blood 91 mg/dL (70-110)
[2022-04-07 08:31] VITALS: BP 166/91; PULSE 80; TEMP 98.7
--- NOTE | 2022-04-07 08:54 | P.PN ---
Subjective Progress Note Date: 04/07/22 Principal diagnosis: This 76-year-old female is seen for acute kidney injury from hypercalcemia. Workup has shown PTH is at 8 vitamin D 25-hydroxy level was 200 and vitamin D 125 dihydroxy level is 59 normal. Serum immunoelectrophoresis unremarkable Urinalysis 1+ protein level She is feeling fine once ago home. Vital signs are stable urine output is 2440 Calcium is down to 8.8 from a peak of 14.5. Objective - Vital Signs Vital signs: Vital Signs Temp 98.7 F 04/07/22 08:00 Pulse 80 04/07/22 08:00 Resp 16 04/07/22 08:00 BP 166/91 04/07/22 08:00 Pulse Ox 97 04/07/22 08:00 FiO2 Intake & Output 04/06/22 04/07/22 04/07/22 18:59 06:59 18:59 Intake Total 450 Balance 450 Intake: Oral 450 Other: Voiding Method Toilet Toilet # Voids 1 3 # Bowel Movements 1 On examination awake alert oriented comfortable HEENT exam unremarkable Lungs clear normal percussion heart sounds unremarkable Abdomen soft nontender Extremity exam was no edema Neurologically awake alert oriented - Labs CBC & Chem 7: 04/03/22 16:04 04/06/22 07:06 Labs: Abnormal Lab Results - Last 24 Hours (Table) 04/04/22 04/06/22 Range/Units 11:33 11:25 POC Glucose (mg/dL) 134 H (70-110) mg/dL Albumin (PEP) 3.35 L (3.80-4.90) g/dL Beta Globulins 0.51 L (0.60-1.30) g/dL Gamma Globulins 0.58 L (0.70-1.50) g/dL Assessment and Plan Assessment: Impression 1. Hypercalcemia, medications multivitamins. Workup unremarkable as mentioned about, calcium back to normal 2. Acute kidney injury from hypercalcemia improving 3. History of chronic kidney disease followed up by a generator rebuilder in [facility] details not available. Has not seen the generator rebuilder for 2 or 3 years 4. Hypertension stable 5. Metabolic acidosis secondary to acute kidney injury slightly worse, may reflect hydration with normal saline 6. E. coli urinary tract infection on ciprofloxacin and sensitive to the antibiotic Recommendation 1. Patient could be discharged from a nephrological perspective to be followed up closely next week in our office 2. Maintain current medication including sodium bicarb. 3. Discontinue normal saline
[2022-04-07] MEDS: ISOSORBIDE MONONITRATE ER 30 MG TAB.ER.24H PO SCH (10:03)
[2022-04-07] MEDS: amLODIPine 5 MG TAB PO SCH (10:03)
[2022-04-07] MEDS: METOPROLOL SUCCINATE (ER) 25 MG TAB.ER.24H PO SCH (10:03)
[2022-04-07] MEDS: CLOPIDOGREL 75 MG TAB PO SCH (10:03)
[2022-04-07] MEDS: CIPROFLOXACIN HCL 500 MG TAB PO SCH (10:03)
[2022-04-07] MEDS: SODIUM BICARBONATE TAB 650 MG TAB PO SCH (10:03)
[2022-04-07 11:49] LABS: Glucose,Whole Blood 107 mg/dL (70-110)
--- NOTE | 2022-04-07 17:05 | P.DS ---
Providers Date of admission: 04/03/22 18:26 Expected date of discharge: 04/07/22 Attending physician: Scotty Carpio Consults: 04/03/22 18:25 Consult Physician Urgent Consulting Provider: Jesus Crespo Consult Reason/Comments: MEHUL, hypercalcemia Do you want consulting provider notified?: Yes 04/06/22 11:23 Consult Physician Routine Consulting Provider: Vasquez Gabriel Consult Reason/Comments: Hypercalcemia, abnormal light chain Do you want consulting provider notified?: Yes Primary care physician: [facility] Course: Chief Complaint: Nausea This is a pleasant 76-year-old patient who follows with Dr. Marquez. Chronic stable medical conditions include CAD with stent this year, diabetes, CK D stage IV, hypertension, osteoarthritis. Progressive for last 3-4 weeks patient become increasingly weak. Poor appetite. Nausea. Itching. Normally has a bowel movement everyday. Also having some urinary frequency. Tired rundown. Denies any fever and chills. Patient was given a dose of calcitonin and Zometa in the ER. For hypercalcemia. Admitted with hypercalcemia, acute kidney injury on CAD. IV fluids. 04/05/2022: Up in a chair. Some improvement in diet. Some of the bedside. Getting normal saline. Patient will follow-up at the [facility]. UA finding suggestive of ATN. Labs pending from today. 04/06/2022: Slight further improvement in creatinine. Saline at 50 mL an hour. Free And lambda light chain positive. Hematology consulted. Further blood work pending. 04/07/2022. SPEP and immunofixation negative for paraproteinemia. Elevated copper and lambda light chain felt to be from chronic kidney disease. Seen by hematology. Care was discussed with the patient's sister at the bedside. No further work vitamin D or calcium supplements. She'll follow up with nephrology in [place]. Oral intake better. Discussion and discharge planning more than 35 minutes Past medical history to include: CAD stent this year,, hypertension, arthritis, diabetes Social history: No smoking or alcohol. Lives alone. Physical examination: VITAL SIGNS: 98.7, 80, 16, 166.91, 97% room air GENERAL: , sitting up in chair , comfortable EYES: Pupils equal. Conjunctiva palel. HEENT: External appearance of nose and ears normal, oral cavity grossly normal. NECK: JVD not raised; masses not palpable. HEART: First and second heart sounds are normal; no edema. LUNGS: Respiratory rate normal; clear to auscultation. ABDOMEN: Soft, nontender, liver spleen not palpable, no masses palpable. PSYCH: Alert and oriented x3; mood and affect normal. MUSCULOSKELETAL:No Clubbing/cyanosis;muscles-grossly intact, OA INVESTIGATIONS, reviewed in the clinical context: Serum protein electrophoresis: No monoclonal paraprotein recognize. April 06: Potassium 3.7 BUN 25 creatinine 3.04 Free Cuppari light chain 2.99, free lambda light chain 3.17. Vitamin D 125 dihydroxy 59., Globulin is low at 0.58 WBC 8.7 hemoglobin 11.7 platelets 265 potassium 3.6 BUN 28 creatinine 3.53 April 03: Creatinine 4.04. Calcium 14.5 ionized calcium 7.8 Vitamin D 25-hydroxy 200 TSH 0.048 UA: Protein 1+, leukoesterase, WBC, bacteria EKG tracing personally reviewed by me-normal sinus rhythm. Chest x-ray film personally reviewed by me-no obvious infiltrates Assessment and plan: -Acute on chronic kidney disease from poor oral intake: Better IV fluids. -Severe hypercalcemia, patient is off vitamin D3, dehydrated: Corrected received Zometa and calcitonin in the ER. IV fluids. On vitamin D supplements and as such discontinued -Chronic kidney disease stage IV from nephrosclerosis Creatinine down to 3.04 -Elevated copper and lambda light chain from chronic kidney disease. No paraproteinemia. -CAD with history of stent earlier this year Plavix -Essential hypertension Toprol-XL, amlodipine -Primary osteoarthritis Tylenol -Nausea secondary to uremia from renal failure: Better -Full code Disposition: Home Plan - Discharge Summary Discharge Rx Participant: No New Discharge Prescriptions: New Sodium Bicarbonate Tab 650 mg PO TID #60 tab Continue Isosorbide Mononitrate ER [Imdur] 30 mg PO DAILY amLODIPine [Norvasc] 5 mg PO DAILY Vitamin B Complex 1 cap PO DAILY Metoprolol Succinate [Metoprolol Succinate ER] 25 mg PO DAILY Clopidogrel [Plavix] 75 mg PO DAILY Discontinued Cholecalciferol [Vitamin D3 (25 Mcg = 1000 Iu)] 25 mcg PO DAILY Cetirizine HCl 10 mg PO DAILY Vitamin E (Dl,Tocopheryl Acet) [Vitamin E (400 Iu = 180 mg)] 400 unit PO DAILY No Action flaxseed oiL [[place]-3 Flaxseed Oil] 1,000 mg PO DAILY Discharge Medication List Clopidogrel [Plavix] 75 mg PO DAILY 04/03/22 [History] Isosorbide Mononitrate ER [Imdur] 30 mg PO DAILY 04/03/22 [History] Metoprolol Succinate [Metoprolol Succinate ER] 25 mg PO DAILY 04/03/22 [History] Vitamin B Complex 1 cap PO DAILY 04/03/22 [History] amLODIPine [Norvasc] 5 mg PO DAILY 04/03/22 [History] flaxseed oiL [[place]-3 Flaxseed Oil] 1,000 mg PO DAILY 04/03/22 [History] Sodium Bicarbonate Tab 650 mg PO TID #60 tab 04/07/22 [Rx] Follow up Appointment(s)/Referral(s): Tyrone Marquez MD [Primary Care Provider] - 1-2 days [facility] [NON-STAFF] - As Needed Jesus Crespo DO [STAFF PHYSICIAN] - 2 Weeks Patient Instructions/Handouts: Acute Kidney Injury (DC), Hypercalcemia (DC) Discharge Disposition: HOME SELF-CARE
== END 2022-04-07 14:38 | disposition home or self-care (01) | DRG 683 ==
LOC: EC 15:30 → 4SSUR 18:26
PROVIDERS: ADMIT Hospitalist; ATTEND Hospitalist
DX: N17.0 Acute kidney failure with tubular necrosis (principal); E87.20 Acidosis, unspecified; N39.0 Urinary tract infection, site not specified; E11.22 Type 2 diabetes mellitus with diabetic chronic kidney disease; E83.52 Hypercalcemia; T45.2X5A Adverse effect of vitamins, initial encounter; E86.0 Dehydration; I95.9 Hypotension, unspecified; I12.9 Hypertensive chronic kidney disease with stage 1 through stage 4 chronic kidney disease, or unspecified chronic kidney disease; R35.0 Frequency of micturition; R63.0 Anorexia; I25.10 Atherosclerotic heart disease of native coronary artery without angina pectoris; B96.20 Unspecified Escherichia coli [E. coli] as the cause of diseases classified elsewhere; I25.2 Old myocardial infarction; K59.00 Constipation, unspecified; M19.91 Primary osteoarthritis, unspecified site; N18.4 Chronic kidney disease, stage 4 (severe); Z79.02 Long term (current) use of antithrombotics/antiplatelets; Z79.899 Other long term (current) drug therapy; Z95.5 Presence of coronary angioplasty implant and graft; X58.XXXA Exposure to other specified factors, initial encounter; R11.0 Nausea; T50.3X5A Adverse effect of electrolytic, caloric and water-balance agents, initial encounter
CPT/HCPCS: 36415; 71046; 76770; 80048; 80053; 81001; 82306; 82330; 82652; 83519; 83735; 83880; 83883; 83970; 84100; 84165; 84443; 84484; 85025; 85610; 85730; 86334; 86335; 87077; 87086; 87186; 93005; 96360; 96372; 99285

== ENCOUNTER 2024-02-23 18:31 | Emergency (ER) | payer MEDICARE ==
[2024-02-23 18:37] VITALS: RESP 18; TEMP 97.7
[2024-02-23 18:41] LABS: Glucose,Whole Blood 136 mg/dL (70-110)
[2024-02-23] MEDS: DIPH,PERTUS(ACELL)TETVAC-LF 0.5 ML VIAL IM ONE (18:50)
--- NOTE | 2024-02-23 19:22 | ED ---
General Adult HPI - General Chief complaint: Fall Stated complaint: fall/facial injury Time Seen by Provider: 02/23/24 18:31 Source: patient, EMS, RN notes reviewed, old records reviewed Mode of arrival: EMS Limitations: no limitations - History of Present Illness Initial comments: This is a 78-year-old female who presents to the emergency department co mplaining of falling while trying to help someone out. Patient states she fell on the left side of her face. Patient denies any loss of conscious. Patient states she is on Plavix. Patient denies any neck pain. Patient does have some right-sided facial pain around the cheek. Patient denies any chest or back pain. Patient denies any arm pain abdominal pain or any lower extremity pain - Related Data Home Medications Medication Instructions Recorded Confirmed Clopidogrel [Plavix] 75 mg PO DAILY 04/03/22 04/03/22 Isosorbide Mononitrate ER [Imdur] 30 mg PO DAILY 04/03/22 04/03/22 Metoprolol Succinate [Metoprolol 25 mg PO DAILY 04/03/22 04/03/22 Succinate ER] Vitamin B Complex 1 cap PO DAILY 04/03/22 04/03/22 amLODIPine [Norvasc] 5 mg PO DAILY 04/03/22 04/03/22 flaxseed oiL [[place]-3 Flaxseed Oil] 1,000 mg PO DAILY 04/03/22 04/03/22 Previous Rx's Medication Instructions Recorded Sodium Bicarbonate Tab 650 mg PO TID #60 tab 04/07/22 Cephalexin [Keflex] 500 mg PO Q6HR 1 Days #20 cap 02/23/24 Allergies Allergy/AdvReac Type Severity Reaction Status Date / Time No Known Allergies Allergy Verified 04/03/22 18:53 Review of Systems ROS Statement: Those systems with pertinent positive or pertinent negative responses have been documented in the HPI. ROS Other: All systems not noted in ROS Statement are negative. Past Medical History Past Medical History: Coronary Artery Disease (CAD), Chest Pain / Angina, Diabetes Mellitus Additional Past Medical History / Comment(s): KIDNEY INSUFFICENCY History of Any Multi-Drug Resistant Organisms: None Reported Past Surgical History: Appendectomy, Joint Replacement Additional Past Surgical History / Comment(s): CARDIAC STENTS Past Anesthesia/Blood Transfusion Reactions: No Reported Reaction Past Psychological History: No Psychological Hx Reported Smoking Status: Never smoker Past Alcohol Use History: None Reported Past Drug Use History: None Reported General Exam - General Exam Comments Initial Comments: GENERAL: Patient is well-developed and well-nourished. Patient is nontoxic and well- hydrated and is in mild distress. ENT: Neck is soft and supple. No significant lymphadenopathy is noted. Oropharynx is clear. Moist mucous membranes. Neck has full range of motion without eliciting any pain. Patient's nose is tender to palpation patient also has tenderness to the zygomatic arch region. EYES: The sclera were anicteric and conjunctiva were pink and moist. Extraocular movements were intact and pupils were equal round and reactive to light. Eyelids were unremarkable. PULMONARY: Unlabored respirations. Good breath sounds bilaterally. No audible rales rhonchi or wheezing was noted. CARDIOVASCULAR: There is a regular rate and rhythm without any murmurs gallops or rubs. ABDOMEN: Soft and nontender with normal bowel sounds. SKIN: Patient has abrasions to the right side of her face on the area NEUROLOGIC: Patient is alert and oriented x3. Cranial nerves II through XII are grossly intact. Motor and sensory are also intact. Normal speech, volume and content. Symmetrical smile. MUSCULOSKELETAL: Normal extremities with adequate strength and full range of motion. LYMPHATICS: No significant lymphadenopathy is noted PSYCHIATRIC: Normal psychiatric evaluation. Limitations: no limitations Course Vital Signs 02/23/24 18:32 Temperature 97.7 F Pulse Rate 66 Respiratory 18 Rate Blood Pressure 159/73 O2 Sat by Pulse 97 Oximetry Procedures - Laceration Laceration #1 Consent Obtained: verbal consent Indication: laceration Site: face Description: linear Depth: simple, single layer Type of Sutures: other (Exofin was used to glue the area) Patient Tolerated Procedure: well Medical Decision Making - Medical Decision Making EKG is interpreted by myself. EKG shows sinus bradycardia 50 bpm DE interval 109 QRS is 92 QT interval 402 QTc is 374. Patient's EKG shows no ST segment elevation or depression Was pt. sent in by a medical professional or institution ([facility] [place], [employer], urgent care, hospital, or fpc...) When possible be specific @ -No Did you speak to anyone other than the patient for history (EMS, parent, family, police, friend...)? What history was obtained from this source @ -No Did you review nursing and triage notes (agree or disagree)? Why? @ -I reviewed and agree with nursing and triage notes Were old charts reviewed (outside hosp., previous admission, EMS record, old EKG, old radiological studies, urgent care reports/EKG's, fpc records)? Report findings @ -No old charts were reviewed Differential Diagnosis? @ -Cervical spine fracture, facial bone fracture, subdural, epidural, intraparenchymal hemorrhage, nasal bone fracture, this is not an all-inclusive l ist EKG interpreted by me (3pts min.). @ -As above X-rays interpreted by me (1pt min.). @ -None done CT interpreted by me (1pt min.). @ -CT of the brain and C-spine showed no acute abnormality. CT of the facial bones shows a nasal bone fracture U/S interpreted by me (1pt. min.). @ -None done What testing was considered but not performed or refused? (CT, X-rays, U/S, labs)? Why? @ -None What meds were considered but not given or refused? Why? @ -None Did you discuss the management of the patient with other professionals (professionals i.e. , PA, E[employer]ING [employer], lab, RT, psych nurse, social work nurse, outpatient facility physical therapist, teacher, retail loan officer, case aide)? Give summary @ -No Was smoking cessation discussed for >3mins.? @ -No Was critical care preformed (if so, how long)? @ -No Were there social determinants of health that impacted care today? How? (Homelessness, low income, unemployed, alcoholism, drug addiction, transportation, low edu. Level, literacy, decrease access to med. care, longterm, rehab)? @ -No Was there de-escalation of care discussed even if they declined (Discuss DNR or withdrawal of care, Hospice)? DNR status @ -No What co-morbidities impacted this encounter? (DM, HTN, Smoking, COPD, CAD, Cancer, CVA, ARF, Chemo, Hep., AIDS, mental health diagnosis, sleep apnea, morbid obesity)? @ -None Was patient admitted / discharged? Hospital course, mention meds given and route, prescriptions, significant lab abnormalities, going to OR and other pertinent info. @ -Patient little Exofin placed on the skin tears on the side of her face on the right. Patient's CAT scans were virtually all negative except for nasal bone fracture and she was given Keflex and will be sent home on Keflex Undiagnosed new problem with uncertain prognosis? @ -No Drug Therapy requiring intensive monitoring for toxicity (Heparin, Nitro, Insulin, Cardizem)? @ -No Were any procedures done? @ -No Diagnosis/symptom? @ -Nasal bone for Acute, or Chronic, or Acute on Chronic? @ -Acute Uncomplicated (without systemic symptoms) or Complicated (systemic symptoms)? @ -Uncomplicated Side effects of treatment? @ -No Exacerbation, Progression, or Severe Exacerbation? @ -No Poses a threat to life or bodily function? How? (Chest pain, [place], [place], pneumonia, PE, COPD, DKA, ARF, appy, cholecystitis, CVA, Diverticulitis, Homicidal, Suicidal, threat to staff... and all critical care pts) @ -No Diagnosis/symptom? @ -Fall Acute, or Chronic, or Acute on Chronic? @ -Acute Uncomplicated (without systemic symptoms) or Complicated (systemic symptoms)? @ -Complicated Side effects of treatment? @ -None Exacerbation, Progression, or Severe Exacerbation] @ -No Poses a threat to life or bodily function? @ -No Diagnosis/symptom? @ -Small facial laceration right cheek Acute, or Chronic, or Acute on Chronic? @ -Acute Uncomplicated (without systemic symptoms) or Complicated (systemic symptoms)? @ -Default Side effects of treatment? @ -None Exacerbation, Progression, or Severe Exacerbation] @ -No Poses a threat to life or bodily function? @ -No - Lab Data Lab Results 02/23/24 Range/Units 18:39 POC Glucose (mg/dL) 136 H (70-110) mg/dL POC Glu Flooring Grader ID Rama Rodriguez Disposition Clinical Impression: Fall, Nasal bone fracture, Facial laceration Disposition: HOME SELF-CARE Instructions (If sedation given, give patient instructions): Fall Prevention for Older Adults (ED), Nasal Fracture (ED) Prescriptions: Cephalexin [Keflex] 500 mg PO Q6HR 1 Days #20 cap Is patient prescribed a controlled substance at d/c from ED?: No Referrals: Crow Kirby MD [STAFF PHYSICIAN] - 02/27/24 Time of Disposition: 20:42
--- NOTE | 2024-02-23 19:52 | CT ---
EXAMINATION TYPE: CT brain cspine wo con, CT facial bones wo con CT DLP: 973.2 mGycm, Automated exposure control for dose reduction was used. DATE OF EXAM: 02/23/2024 7:07 PM COMPARISON: None. CLINICAL INDICATION: Female, 78 years old with history of Trauma; Fall TECHNIQUE: Brain: Multiple axial CT images of the brain were obtained without IV contrast. Cspine: Axial CT images from the skull base to the inferior aspect of T2 we obtained without intraven ous contrast. Coronal and sagittal reformatted images were also reviewed. Facial: Axial imaging of the facial structures with sagittal and coronal reformats. FINDINGS: Brain: Extra-axial spaces: No abnormal extra-axial fluid collections. Ventricular system: Within normal limits Cerebral parenchyma: No acute intraparenchymal hemorrhage or mass effect. The weems-white junction is well differentiated. Cerebellum: Unremarkable. Mass effect: No evidence of midline shift. Intracranial vasculature: unremarkable Soft tissues: Normal. Calvarium/osseous structures: No depressed skull fracture. Paranasal sinuses and mastoid air cells: Clear. Visualized orbits: Orbital contents are intact. Cervical spine: Fracture: None. Osseous structures: Multilevel degenerative disc disease changes with endplate spurring and disc oste ophyte complex's. Vertebral alignment: Within normal limits. Spinal canal/Neural Foramina: No evidence of significant spinal canal narrowing. No evidence for sign ificant neural foraminal stenosis. Neck soft tissues: There is a indeterminate fluid density lesion in the anterior mediastinum measurin g 5.9 x 3.9 x 4.5 cm which is separate from the left thyroid lobe. Other: The airway is patent. The lung apices are clear. Atherosclerosis of the carotid bifurcations. Facial: Right frontal scalp hematoma without evidence of fracture at this site. There is deformity to the nasal bone. The orbital contents are unremarkable.The temporal-mandibular joints appear symmetri c. The visualized portion of the paranasal sinuses appear clear. IMPRESSION: 1. No acute intracranial process. 2. Right frontal scalp hematoma without evidence of fracture. 3. Indeterminate anterior mediastinal/thoracic inlet mass. Further evaluation with MRI recommended w ith IV contrast. 4. Deformity to the nasal bone correlate with tenderness for fracture 5. No evidence of cervical spine fracture. 6. Moderate multilevel degenerative disc disease.
[2024-02-23] MEDS: CEPHALEXIN 500 MG CAP PO STA (20:32)
[2024-02-23] MEDS: TOPICAL SKIN ADHESIVE 1 EACH AMP TOPICAL ONE (20:48)
[2024-02-23 21:20] VITALS: BP 159/82; PULSE 49
== END 2024-02-23 21:20 | disposition home or self-care (01) ==
LOC: EC 18:31
DX: S02.2XXA Fracture of nasal bones, initial encounter for closed fracture (principal); S01.81XA Laceration without foreign body of other part of head, initial encounter; Z23 Encounter for immunization; W19.XXXA Unspecified fall, initial encounter
CPT/HCPCS: 12011; 36415; 70450; 70486; 72125; 90471; 90715; 93005; 99284

== ENCOUNTER 2024-03-12 12:15 | Observation (INO) | payer MEDICARE ==
--- NOTE | 2024-03-12 12:51 | ED ---
Recheck HPI - General Chief Complaint: Recheck/Abnormal Lab/Rx Stated Complaint: abn labs Time Seen by Provider: 03/12/24 12:34 Source: patient, RN notes reviewed Mode of arrival: ambulatory Limitations: no limitations - History of Present Illness Initial Comments: This is an 78-year-old female who presents emergency department accompanied by her grandson with referral from Dr. Arce office for abnormal labs. it is reported that patient's kidney functions were 'too high', patient is unaware of when recent lab work was drawn or if she was referred from her PCP for if it was from a tufting machine operator. patient denies known history of CKD. currently she is asymptomatic, denies symptoms of abdominal pain, dysuria, hematuria, chest pain, shortness of breath, difficulty breathing, bowel changes. - Related Data Home Medications Medication Instructions Recorded Confirmed Isosorbide Mononitrate ER [Imdur] 30 mg PO DAILY 04/03/22 03/12/24 Metoprolol Succinate [Metoprolol 25 mg PO DAILY 04/03/22 03/12/24 Succinate ER] amLODIPine [Norvasc] 5 mg PO DAILY 04/03/22 03/12/24 Melatonin 5 mg PO HS 03/12/24 03/12/24 Allergies Allergy/AdvReac Type Severity Reaction Status Date / Time celecoxib [From Celebrex] Allergy Unknown Verified 03/12/24 15:01 ezetimibe [From Vytorin] Allergy Unknown Verified 03/12/24 15:01 lavender (Lavandula Allergy Unknown Verified 03/12/24 15:01 angustifolia) Penicillins Allergy Unknown Verified 03/12/24 15:01 simvastatin [From Vytorin] Allergy Unknown Verified 03/12/24 15:01 Review of Systems ROS Statement: Those systems with pertinent positive or pertinent negative responses have been documented in the HPI. ROS Other: All systems not noted in ROS Statement are negative. Past Medical History Past Medical History: Coronary Artery Disease (CAD), Chest Pain / Angina, Diabetes Mellitus Additional Past Medical History / Comment(s): KIDNEY INSUFFICENCY History of Any Multi-Drug Resistant Organisms: None Reported Past Surgical History: Appendectomy, Joint Replacement Additional Past Surgical History / Comment(s): CARDIAC STENTS Past Anesthesia/Blood Transfusion Reactions: No Reported Reaction Past Psychological History: No Psychological Hx Reported Smoking Status: Never smoker Past Alcohol Use History: None Reported Past Drug Use History: None Reported General Exam Limitations: no limitations General appearance: alert, in no apparent distress Head exam: Present: atraumatic, normocephalic, normal inspection ENT exam: Present: normal exam, mucous membranes moist Neck exam: Present: normal inspection. Absent: tenderness, meningismus, lymphadenopathy Respiratory exam: Present: normal lung sounds bilaterally. Absent: respiratory distress, wheezes, rales, rhonchi, stridor Cardiovascular Exam: Present: regular rate, normal rhythm, normal heart sounds. Absent: systolic murmur, diastolic murmur, rubs, gallop, clicks GI/Abdominal exam: Present: soft, normal bowel sounds. Absent: distended, tenderness, guarding, rebound, rigid Extremities exam: Present: normal inspection, full ROM, normal capillary refill. Absent: tenderness, pedal edema, joint swelling, calf tenderness Back exam: Present: normal inspection Neurological exam: Present: alert, oriented X3, CN II-XII intact Skin exam: Present: warm, dry, intact, normal color. Absent: rash Course Vital Signs 03/12/24 12:23 Temperature 97.3 F L Pulse Rate 81 Respiratory 14 Rate Blood Pressure 122/65 O2 Sat by Pulse 99 Oximetry Medical Decision Making - Medical Decision Making Was pt. sent in by a medical professional or institution (, PA, ENERGY SYSTEMS ENGINEER, urgent care, hospital, or half-way...) When possible be specific @ -Patient was advised by medical provider to report to the emergency department for further evaluation of elevated kidney enzymes. Did you speak to anyone other than the patient for history (EMS, parent, family, police, friend...)? What history was obtained from this source @ -spoke to the patient's grandson at bedside who states that the patient was advised to report to the emergency department for further evaluation. Did you review nursing and triage notes (agree or disagree)? Why? @ -I reviewed and agree with nursing and triage notes Were old charts reviewed (outside hosp., previous admission, EMS record, old EKG, old radiological studies, urgent care reports/EKG's, half-way records)? Report findings @ -No old charts were reviewed Differential Diagnosis (chest pain, altered mental status, abdominal pain women, abdominal pain men, vaginal bleeding, weakness, fever, dyspnea, syncope, headache, dizziness, GI bleed, back pain, seizure, CVA, palpatations, mental health, musculoskeletal)? @ -Differential Abdominal Pain Women: Appendicitis, Cholecystitis, diverticulosis, ischemic bowel, pancreatitis, hepatitis, UTI, gastroenteritis, AAA, incarcerated hernia, bowel obstruction, constipation, inflammatory bowel, hepatitis, peptic ulcer disease, splenic infarction, perforated viscus, vulvitis, ovarian torsion, PID, kidney stone, placenta abruption, this is not meant to be an all-inclusive list EKG interpreted by me (3pts min.). @ -None X-rays interpreted by me (1pt min.). @ -None done CT interpreted by me (1pt min.). @ -None done U/S interpreted by me (1pt. min.). @ -Ultrasound of the kidneys ureter and bladder reveals changes of bilateral chronic medical renal disease with no hydronephrosis and a 7 mm nonobstructive right midpole renal stone. What testing was considered but not performed or refused? (CT, X-rays, U/S, labs)? Why? @ -None What meds were considered but not given or refused? Why? @ -None Did you discuss the management of the patient with other professionals (professionals i.e. , PA, ENERGY SYSTEMS ENGINEER, lab, RT, psych nurse, secondary social studies teacher, named account executive, teacher, wildlife officer, cyanide case hardener)? Give summary @ -i spoke with internal medicine physician , in regard to the patient's laboratory findings concerning for acute kidney injury and patient is excepted for admission with nephrology on consult and continued fluid hydration. Was smoking cessation discussed for >3mins.? @ -No Was critical care preformed (if so, how long)? @ -No Were there social determinants of health that impacted care today? How? (Homelessness, low income, unemployed, alcoholism, drug addiction, transportat ion, low edu. Level, literacy, decrease access to med. care, residential, rehab)? @ -No Was there de-escalation of care discussed even if they declined (Discuss DNR or withdrawal of care, Hospice)? DNR status @ -No What co-morbidities impacted this encounter? (DM, HTN, Smoking, COPD, CAD, Cancer, CVA, ARF, Chemo, Hep., AIDS, mental health diagnosis, sleep apnea, morbid obesity)? @ -None Was patient admitted / discharged? Hospital course, mention meds given and route, prescriptions, significant lab abnormalities, going to OR and other pertinent info. @ - Admitted. 78-year-old female with abnormal labs. On my evaluation of the patient she is in no signs of acute distress and is denying a comprehensive review of systems. No acute physical exam findings. CBC unremarkable, CMP reveals elevated BUN of 38 and creatinine of 3.37 and hypercalcemia of 11.5, urinalysis negative for signs of infection. Due to patient's elevated kidney enzymes and GFR of 12 she will be admitted to internal medicine with nephrology on consult for further evaluation. Additionally is provided with a liter fluid bolus. Patient will be sent for ultrasound imaging of the kidneys ureters and bladder as well that resulted essentially unremarkable. Patient will be manage internal medicine with nephrology on consult for further evaluation of acute kidney injury and low GFR, discussed with Dr. Hutchison Undiagnosed new problem with uncertain prognosis? @ -No Drug Therapy requiring intensive monitoring for toxicity (Heparin, Nitro, Insulin, Cardizem)? @ -No Were any procedures done? @ -No Diagnosis/symptom? @ -MEHUL Acute, or Chronic, or Acute on Chronic? @ -acute Uncomplicated (without systemic symptoms) or Complicated (systemic symptoms)? @ -uncomplicated Side effects of treatment? @ -No Exacerbation, Progression, or Severe Exacerbation? @ -No Poses a threat to life or bodily function? How? (Chest pain, [place], [place], pneumonia, PE, COPD, DKA, ARF, appy, cholecystitis, CVA, Diverticulitis, Homicidal, Suicidal, threat to staff... and all critical care pts) @ -No - Lab Data Result diagrams: 03/12/24 12:50 03/12/24 12:50 Lab Results 03/12/24 03/12/24 03/12/24 Range/Units 12:50 12:50 13:27 WBC 8.4 (3.8-10.6) k/uL RBC 3.50 L (3.80-5.40) m/uL Hgb 11.1 L (11.4-16.0) gm/dL Hct 32.8 L (34.0-46.0) % MCV 93.7 (80.0-100.0) fL MCH 31.8 (25.0-35.0) pg MCHC 34.0 (31.0-37.0) g/dL RDW 12.7 (11.5-15.5) % Plt Count 284 (150-450) k/uL MPV 7.1 Neutrophils % 67 % Lymphocytes % 24 % Monocytes % 4 % Eosinophils % 3 % Basophils % 1 % Neutrophils # 5.7 (1.3-7.7) k/uL Lymphocytes # 2.0 (1.0-4.8) k/uL Monocytes # 0.3 (0-1.0) k/uL Eosinophils # 0.2 (0-0.7) k/uL Basophils # 0.0 (0-0.2) k/uL Sodium 137 (137-145) mmol/L Potassium 3.6 (3.5-5.1) mmol/L Chloride 103 (98-107) mmol/L Carbon Dioxide 24 (22-30) mmol/L Anion Gap 10 mmol/L BUN 38 H (7-17) mg/dL Creatinine 3.37 H (0.52-1.04) mg/dL Est GFR (CKD-EPI)AfAm 14 (>60 ml/min/1.73 sqM) Est GFR (CKD-EPI)NonAf 12 (>60 ml/min/1.73 sqM) Glucose 110 H (74-99) mg/dL Calcium 11.5 H (8.4-10.2) mg/dL Phosphorus 2.9 (2.5-4.5) mg/dL Magnesium 2.2 (1.6-2.3) mg/dL Total Bilirubin 0.7 (0.2-1.3) mg/dL AST 20 (14-36) U/L ALT 14 (4-34) U/L Alkaline Phosphatase 68 (38-126) U/L Total Protein 6.5 (6.3-8.2) g/dL Albumin 4.0 (3.5-5.0) g/dL Urine Color Colorless Urine Appearance Clear (Clear) Urine pH 5.0 (5.0-8.0) Ur Specific [place] 1.009 (1.001-1.035) Urine Protein Trace H (Negative) Urine Glucose (UA) Negative (Negative) Urine Ketones Negative (Negative) Urine Blood Negative (Negative) Urine Nitrite Negative (Negative) Urine Bilirubin Negative (Negative) Urine Urobilinogen <2.0 (<2.0) mg/dL Ur Leukocyte Esterase Moderate H (Negative) Urine RBC <1 (0-5) /hpf Urine WBC 2 (0-5) /hpf Ur Squamous Epith Cells <1 (0-4) /hpf Urine Bacteria Rare H (None) /hpf Hyaline Casts 1 (0-2) /lpf Urine Mucus Rare H (None) /hpf Disposition Clinical Impression: MEHUL (acute kidney injury) Disposition: ADMITTED IP TO THIS HOSP Condition: Stable Is patient prescribed a controlled substance at d/c from ED?: No Decision to Admit Reason: Admit from EC Decision Date: 03/12/24 Decision Time: 14:41
[2024-03-12 13:52] LABS: Basophils % (A) 1 %; Eosinophils # (A) 0.2 k/uL (0-0.7); Eosinophils % (A) 3 %; HCT 32.8 % (34.0-46.0); HGB 11.1 gm/dL (11.4-16.0); Lymphocytes % (A) 24 %; MCH 31.8 pg (25.0-35.0); MCV 93.7 fL (80.0-100.0); Mean Platelet Volume 7.1; Monocytes # (A) 0.3 k/uL (0-1.0); Monocytes % (A) 4 %; Neutrophils # (A) 5.7 k/uL (1.3-7.7); Neutrophils % (A) 67 %; Platelet Count 284 k/uL (150-450); RDW 12.7 % (11.5-15.5); WBC 8.4 k/uL (3.8-10.6)
[2024-03-12 14:09] LABS: Appearance,Urine Clear (Clear); Bacteria,Urine Rare /hpf; Bilirubin,Urine Negative (Negative); Blood,Urine Negative (Negative); Color,Urine Colorless; Glucose,Urine (UA) Negative (Negative); Hyaline Casts,Urine 1 /lpf (0-2); Ketones,Urine Negative (Negative); Leukocyte Esterase,Urine Moderate (Negative); Mucus,Urine Rare /hpf; Nitrite,Urine Negative (Negative); Protein,Urine Trace (Negative); RBC,Urine <1 /hpf (0-5); Specific Gravity,Urine 1.009 (1.001-1.035); Squamous Epithelial Cell,Urine <1 /hpf (0-4); Urobilinogen,Urine <2.0 mg/dL (<2.0); WBC,Urine 2 /hpf (0-5)
[2024-03-12 14:10] LABS: ALT 14 U/L (4-34); AST 20 U/L (14-36); African American GFR (CKD) 14 (>60 ml/min/1.73 sqM); Alkaline Phosphatase 68 U/L (38-126); Anion Gap 10 mmol/L; Blood Urea Nitrogen 38 mg/dL (7-17); Calcium 11.5 mg/dL (8.4-10.2); Carbon Dioxide 24 mmol/L (22-30); Chloride 103 mmol/L (98-107); Glucose 110 mg/dL (74-99); Magnesium 2.2 mg/dL (1.6-2.3); Non-African American GFR(CKD) 12 (>60 ml/min/1.73 sqM); Phosphorus 2.9 mg/dL (2.5-4.5); Potassium 3.6 mmol/L (3.5-5.1); Sodium 137 mmol/L (137-145); Total Bilirubin 0.7 mg/dL (0.2-1.3); Total Protein 6.5 g/dL (6.3-8.2)
[2024-03-12] MEDS: SODIUM CHLORIDE 0.9% 1,000 ML IV STA (14:23)
[2024-03-12] MEDS ORDERED: ACETAMINOPHEN TAB 325 MG TAB PO PRN (14:41)
[2024-03-12] MEDS ORDERED: NALOXONE 0.4 MG/ML 1 ML VIAL IV PRN (14:41)
--- NOTE | 2024-03-12 15:23 | US ---
EXAMINATION TYPE: US kidneys/renal and bladder DATE OF EXAM: 03/12/2024 COMPARISON: 04/06/2022 CLINICAL INDICATION: Female, 78 years old with history of elevated BUN, SCr; Abnormal labs. EXAM MEASUREMENTS: Right Kidney: 7.5 x 3.5 x 3.9 cm Left Kidney: 7.6 x 3.8 x 4.1 cm Right Kidney: Appears small in size, cortical thinning. Mid echogenic focus with shadowing measures 7 mm. No hydronephrosis. Left Kidney: Appears small in size, cortical thinning. No hydronephrosis. Bladder: distended, anechoic Left jet seen IMPRESSION: 1. Changes of bilateral chronic medical renal disease. No hydronephrosis. 2. A 7 mm nonobstructive right mid pole renal stone. [facility], , 03/12/2024 3:20 PM
[2024-03-12] MEDS: SODIUM CHLORIDE 0.9% 1,000 ML IV SCH (15:43)
[2024-03-12] MEDS ORDERED: ONDANSETRON 4 MG/2 ML VIAL IVP PRN (19:25)
--- NOTE | 2024-03-12 19:35 | P.HPIM ---
History of Present Illness H&P Date: 03/12/24 Chief Complaint: Abnormal labs Very pleasant 78-year-old patient, follows with Dr. Marquez office. Patient got a call from her doctor's office that her kidney function is abnormal she needs to go to the ER for further testing. ER patient was seen by the PA and patient was admitted. Patient does not have any new symptoms. Creatinine 3.37. Patient has some mild cognitive impairment. She does state that she sees a doctor behind [facility]. Which she thinks is a kidney doctor. Which checks the blood. Looking back and blood work patient's creatinine in March 2022 was 3.04. Patient has decreased appetite. No fever no chills. No urinary symptoms. Able to get around by herself. Forgetful. Patient is accompanied by her grandson in the hospital. Review of systems: GEN.: Decreased appetite EYES: None HEENT: None NECK: None RESPIRATORY: None CARDIOVASCULAR: None GASTROINTESTINAL: None GENITOURINARY: None MUSCULOSKELETAL: Joint pains l] LYMPHATICS: None HEMATOLOGICAL: None PSYCHIATRY: Forgetful NEUROLOGICAL: None Social history: Lives alone. No smoking no alcohol. Physical examination: VITAL SIGNS: 97.3, 55, 19, 135 x 55, 97% room air GENERAL: BMI 24.6, sitting up edge of bed, awake comfortable. EYES: Pupils equal. Conjunctiva nenita l. HEENT: External appearance of nose and ears normal, oral cavity grossly normal. NECK: JVD not raised; masses not palpable. HEART: First and second heart sounds are normal; no edema. LUNGS: Respiratory rate normal; clear to auscultation. ABDOMEN: Soft, nontender, liver spleen not palpable, no masses palpable. PSYCH: Alert and oriented x3; mood and affect nenita l. But forgetful about details about her office visits name of doctors etc. MUSCULOSKELETAL:No Clubbing/cyanosis;muscles-grossly intact. Severe OA changes specially in the hands NEUROLOGICAL: Cranial nerves grossly intact; no facial asymmetry, power and sensation grossly intact. LYMPHATICS: No lymph nodes palpable in the axilla and neck INVESTIGATIONS, reviewed in the clinical context: Renal ultrasound: Right kidney appears small in size cortical thinning. Left kidney appears small in size. Cortical thinning. 7 mm nonobstructive right midpole renal stone. March 12, 2024: White count 8.4 hemoglobin 11.1 platelets 34 potassium 3.6 BUN 38 creatinine 3.37 UA showing trace protein. Assessment plan: -It appears patient's had chronic kidney disease for some time. With creatinine being 3.2 in March 2022. Creatinine today in the ER was 3.37. It also does seem that patient does follow with a finance controller. Patient cannot remember the name. Renal ultrasound findings compatible with chronic kidney disease. CKD stage IV probably nephrosclerosis. Consult nephrology. -CAD with stent Toprol-XL -Normocytic anemia of chronic kidney disease -Essential hypertension Amlodipine 5 mg a day Toprol-XL 25 mg a day -Chronic insomnia Melatonin 5 mg nightly -Primary osteoarthritis multiple joints Tylenol as needed -Mild cognitive impairment. Patient is a bit forgetful about things. -Full code Care was discussed with the patient and grandson at the bedside. Will have nephrology see the patient. Likely can be discharged tomorrow and follow-up outpatient. Past Medical History Past Medical History: Coronary Artery Disease (CAD), Chest Pain / Angina, Diabetes Mellitus Additional Past Medical History / Comment(s): KIDNEY INSUFFICENCY History of Any Multi-Drug Resistant Organisms: None Reported Past Surgical History: Appendectomy, Joint Replacement Additional Past Surgical History / Comment(s): CARDIAC STENTS Past Anesthesia/Blood Transfusion Reactions: No Reported Reaction Past Psychological History: No Psychological Hx Reported Smoking Status: Never smoker Past Alcohol Use History: None Reported Past Drug Use History: None Reported Medications and Allergies Home Medications Medication Instructions Recorded Confirmed Type Isosorbide Mononitrate ER [Imdur] 30 mg PO DAILY 04/03/22 03/12/24 History Metoprolol Succinate [Metoprolol 25 mg PO DAILY 04/03/22 03/12/24 History Succinate ER] amLODIPine [Norvasc] 5 mg PO DAILY 04/03/22 03/12/24 History Melatonin 5 mg PO HS 03/12/24 03/12/24 History Allergies Allergy/AdvReac Type Severity Reaction Status Date / Time celecoxib [From Celebrex] Allergy Unknown Verified 03/12/24 15:01 ezetimibe [From Vytorin] Allergy Unknown Verified 03/12/24 15:01 lavender (Lavandula Allergy Unknown Verified 03/12/24 15:01 angustifolia) Penicillins Allergy Unknown Verified 03/12/24 15:01 simvastatin [From Vytorin] Allergy Unknown Verified 03/12/24 15:01 Physical Exam Vitals: Vital Signs Temp Pulse Resp BP Pulse Ox 03/12/24 17:54 97.8 F 03/12/24 17:42 55 L 19 135/55 97 03/12/24 12:23 97.3 F L 81 14 122/65 99 Intake and Output 03/12/24 03/12/24 03/12/24 06:59 14:59 22:59 Other: Weight 58.967 kg Results CBC & Chem 7: 03/12/24 12:50 03/12/24 12:50 Labs: Abnormal Lab Results - Last 24 Hours (Table) 03/12/24 03/12/24 03/12/24 Range/Units 12:50 12:50 13:27 RBC 3.50 L (3.80-5.40) m/uL Hgb 11.1 L (11.4-16.0) gm/dL Hct 32.8 L (34.0-46.0) % BUN 38 H (7-17) mg/dL Creatinine 3.37 H (0.52-1.04) mg/dL Glucose 110 H (74-99) mg/dL Calcium 11.5 H (8.4-10.2) mg/dL Urine Protein Trace H (Negative) Ur Leukocyte Esterase Moderate H (Negative) Urine Bacteria Rare H (None) /hpf Urine Mucus Rare H (None) /hpf
[2024-03-12] MEDS: MELATONIN 5 MG TABLET PO SCH (21:05)
[2024-03-13 08:30] VITALS: BP 131/71; PULSE 64; RESP 20; TEMP 98.2
[2024-03-13 08:59] LABS: Basophils # (A) 0.04 X 10*3/uL (0.00-0.10); Basophils % (A) 0.7 %; Eosinophils # (A) 0.25 X 10*3/uL (0.04-0.35); Eosinophils % (A) 4.2 %; HGB 9.7 g/dL (12.0-15.0); Lymphocytes # (A) 1.83 X 10*3/uL (0.90-5.00); Lymphocytes % (A) 30.7 %; MCHC 34.6 g/dL (32.0-37.0); MCV 92.4 FL (80.0-97.0); Monocytes # (A) 0.37 X 10*3/uL (0.20-1.00); Monocytes % (A) 6.2 %; NRBC Per 100 WBC 0 X 10*3/uL (0.00-0.01); Neutrophils # (A) 3.46 X 10*3/uL (1.80-7.70); Neutrophils % (A) 57.9 %; Platelet Count 203 X 10*3/uL (140-440); RBC 3.03 X 10*6/uL (4.10-5.20); RDW 12.9 % (11.5-14.5); WBC 5.97 X 10*3/uL (4.50-10.00)
[2024-03-13 09:23] LABS: ALT 11 U/L (8-44); AST 13 U/L (13-35); Albumin 3.4 g/dL (3.8-4.9); Alkaline Phosphatase 52 U/L (41-126); BUN/Creat Ratio 9.74 Ratio (12.00-20.00); Blood Urea Nitrogen 30.2 mg/dL (9.0-27.0); Calcium 9.5 mg/dL (8.7-10.3); Carbon Dioxide 20.2 mmol/L (21.6-31.8); Chloride 111 mmol/L (96-109); Globulin 1.7 g/dL (1.6-3.3); Glucose 90 mg/dL (70-110); Potassium 3.7 mmol/L (3.5-5.5); Sodium 140 mmol/L (135-145); Total Bilirubin 0.4 mg/dL (0.3-1.2); Total Protein 5.1 g/dL (6.2-8.2)
--- NOTE | 2024-03-13 10:07 | P.NPCON ---
History of Present Illness - History of Present Illness 78-year-old female with a past medical history of hypertension, insomnia, CKD stage IV presents after receiving a call from her PCP stating she had some abnormal kidney labs and needed to be checked out in the ED. patient reports the last week she has only been drinking Pepsi and minimal water. Nephrology consulted for acute kidney injury. Serum creatinine on admission was 3.37, today it is 3.1. Patient's baseline creatinine from 04/14 is 3.04-3.6. Review of patient's home medication list shows no nephrotoxic medications. No history of diabetes. Urinalysis shows trace urine protein, moderate leukocyte esterase, less than 1 urine squamous epithelial cells, and rare urine bacteria. Calcium noted to be 11.5, decreased to 9.5. No calcium supplements noted on med list. Vitals have been stable since admission, no significant hypotension noted systolic noted at 122 on admission, highest noted at 161 currently 131. Since being admitted patient has been maintained on NS 75 cc/h. Past Medical History Past Medical History: Coronary Artery Disease (CAD), Chest Pain / Angina, Diabetes Mellitus Additional Past Medical History / Comment(s): KIDNEY INSUFFICENCY History of Any Multi-Drug Resistant Organisms: None Reported Past Surgical History: Appendectomy, Joint Replacement Additional Past Surgical History / Comment(s): CARDIAC STENTS Past Anesthesia/Blood Transfusion Reactions: No Reported Reaction Past Psychological History: No Psychological Hx Reported Smoking Status: Never smoker Past Alcohol Use History: None Reported Past Drug Use History: None Reported Medications and Allergies Home Medications Medication Instructions Recorded Confirmed Type Isosorbide Mononitrate ER [Imdur] 30 mg PO DAILY 04/03/22 03/12/24 History Metoprolol Succinate [Metoprolol 25 mg PO DAILY 04/03/22 03/12/24 History Succinate ER] amLODIPine [Norvasc] 5 mg PO DAILY 04/03/22 03/12/24 History Melatonin 5 mg PO HS 03/12/24 03/12/24 History Allergies Allergy/AdvReac Type Severity Reaction Status Date / Time celecoxib [From Celebrex] Allergy Unknown Verified 03/12/24 15:01 ezetimibe [From Vytorin] Allergy Unknown Verified 03/12/24 15:01 lavender (Lavandula Allergy Unknown Verified 03/12/24 15:01 angustifolia) Penicillins Allergy Unknown Verified 03/12/24 15:01 simvastatin [From Vytorin] Allergy Unknown Verified 03/12/24 15:01 Physical Exam Vitals: Vital Signs Temp Pulse Pulse Resp BP BP Pulse Ox 03/13/24 07:38 98.2 F 64 20 131/71 100 03/13/24 03:27 98.3 F 47 L 15 135/50 99 03/12/24 19:57 97.7 F 58 L 17 161/62 100 03/12/24 19:25 98 03/12/24 17:54 97.8 F 03/12/24 17:42 55 L 19 135/55 97 03/12/24 12:23 97.3 F L 81 14 122/65 99 Intake and Output 03/12/24 03/13/24 03/13/24 22:59 06:59 14:59 Other: # Voids 5 Weight 58.967 kg General Appearance: Alert, cooperative, no distress, appears stated age. Lungs: Decreased breath sound bilaterally with fine rhonchi no crackles or wheezes. Chest Wall: Chest wall normal expansion with deep inspiration no tenderness and no deformity was found on exam, no costochondral pain or discomfort. Heart: Regular rate and rhythm, S1, S2 normal, no murmur, rub or gallop. Abdomen: Soft, non-tender, bowel sounds active all four quadrants, no masses, no organomegaly. Extremities: No edema noted in the legs Pulses: 2+ and symmetric. Neurologic: Alert oriented x3 cranial nerves II through XII intact Results - Lab Results Most recent lab results Calcium 9.5 mg/dL (8.7-10.3) 03/13/24 06:04 Phosphorus 2.9 mg/dL (2.5-4.5) 03/12/24 12:50 Magnesium 2.2 mg/dL (1.6-2.3) 03/12/24 12:50 03/13/24 06:04 03/13/24 06:04 Assessment and Plan Assessment: 1. CKD stage IV, potentially secondary to nephrosclerosis, baseline Cr 3.04-3.6 2. Acute kidney injury, likely 2/2 to volume depletion and hypercalcemia 3. Anemia, rule out iron deficiency 4. MGUS 5. Hypercalcemia associated with volume contraction. No calcium supplements noted. Calcium has improved to 9.5. Hydration Plan: Maintain IVF NS at 75 cc/h Avoid nephrotoxic agents Patient can be discharged from nephrology standpoint. Follow-up in office in 1-2 weeks Thank you for the consultation. Patient is seen and examined with the resident. Agree with resident's findings, assessment and plan.
[2024-03-13] MEDS: ISOSORBIDE MONONITRATE ER 30 MG TAB.ER.24H PO SCH (10:29)
[2024-03-13] MEDS: METOPROLOL SUCCINATE (ER) 25 MG TAB.ER.24H PO SCH (10:29)
[2024-03-13] MEDS: amLODIPine 5 MG TAB PO SCH (10:29)
--- NOTE | 2024-03-13 17:56 | P.DS ---
Providers Date of admission: 03/12/24 15:38 Expected date of discharge: 03/13/24 Attending physician: Scotty Carpio Consults: 03/12/24 14:41 Consult Physician Routine Consulting Provider: Katlyn Marino Consult Reason/Comments: MEHUL, low GFR Do you want consulting provider notified?: Yes, Notify in am Primary care physician: [facility] Course: Chief Complaint: Abnormal labs Very pleasant 78-year-old patient, follows with Dr. Marquez office. Patient got a call from her doctor's office that her kidney function is abnormal she needs to go to the ER for further testing. ER patient was seen by the PA and patient was admitted. Patient does not have any new symptoms. Creatinine 3.37. Patient has some mild cognitive impairment. She does state that she sees a doctor behind [facility]. Which she thinks is a kidney doctor. Which checks the blood. Looking back and blood work patient's creatinine in March 2022 was 3.04. Patient has decreased appetite. No fever no chills. No urinary symptoms. Able to get around by herself. Forgetful. Patient is accompanied by her grandson in the hospital. March 13: Patient seen by Dr. Marino this morning. She did confirm that she saw the patient recently. Is known to them. Her baseline creatinine runs around 3.4. Patient therefore being discharged. Will follow outpatient. Ned. Discussed. Social history: Lives alone. No smoking no alcohol. Physical examination: VITAL SIGNS: 98.2, 64, 20, 131 x 71, 100% room air GENERAL: BMI 24.6, sitting up edge of bed, awake comfortable. EYES: Pupils equal. Conjunctiva nenita l. HEENT: External appearance of nose and ears normal, oral cavity grossly normal. NECK: JVD not raised; masses not palpable. HEART: First and second heart sounds are normal; no edema. LUNGS: Respiratory rate normal; clear to auscultation. ABDOMEN: Soft, nontender, liver spleen not palpable, no masses palpable. PSYCH: Alert and oriented x3; mood and affect nenita l. But forgetful about details about her office visits name of doctors etc. MUSCULOSKELETAL:No Clubbing/cyanosis;muscles-grossly intact. Severe OA changes specially in the hands INVESTIGATIONS, reviewed in the clinical context: March 13: White count 5.9 hemoglobin 9.7 platelets 203 potassium 3.7 BUN 30.2 creatinine 3.1 Renal ultrasound: Right kidney appears small in size cortical thinning. Left kidney appears small in size. Cortical thinning. 7 mm nonobstructive right midpole renal stone. March 12, 2024: White count 8.4 hemoglobin 11.1 platelets 34 potassium 3.6 BUN 38 creatinine 3.37 UA showing trace protein. Assessment plan: CKD stage IV probably nephrosclerosis.: No further intervention currently Be seen by Dr. Marino. Follows outpatient. -CAD with stent Toprol-XL -Normocytic anemia of chronic kidney disease -Essential hypertension Amlodipine 5 mg a day Toprol-XL 25 mg a day -Chronic insomnia Melatonin 5 mg nightly -Primary osteoarthritis multiple joints Tylenol as needed -Mild cognitive impairment. Patient is a bit forgetful about things. -Full code Disposition: Home Past Medical History Past Medical History: Coronary Artery Disease (CAD), Chest Pain / Angina, Diabetes Mellitus Additional Past Medical History / Comment(s): KIDNEY INSUFFICENCY History of Any Multi-Drug Resistant Organisms: None Reported Past Surgical History: Appendectomy, Joint Replacement Additional Past Surgical History / Comment(s): CARDIAC STENTS Past Anesthesia/Blood Transfusion Reactions: No Reported Reaction Past Psychological History: No Psychological Hx Reported Smoking Status: Never smoker Past Alcohol Use History: None Reported Past Drug Use History: None Reported Plan - Discharge Summary Discharge Rx Participant: Yes New Discharge Prescriptions: Continue Isosorbide Mononitrate ER [Imdur] 30 mg PO DAILY amLODIPine [Norvasc] 5 mg PO DAILY Metoprolol Succinate [Metoprolol Succinate ER] 25 mg PO DAILY Melatonin 5 mg PO HS Discharge Medication List Isosorbide Mononitrate ER [Imdur] 30 mg PO DAILY 04/03/22 [History] Metoprolol Succinate [Metoprolol Succinate ER] 25 mg PO DAILY 04/03/22 [History] amLODIPine [Norvasc] 5 mg PO DAILY 04/03/22 [History] Melatonin 5 mg PO HS 03/12/24 [History] Follow up Appointment(s)/Referral(s): Katlyn Marino MD [STAFF PHYSICIAN] - 4 Weeks Tyrone Marquez MD [Primary Care Provider] - 1-2 days Discharge Disposition: HOME SELF-CARE
== END 2024-03-13 12:45 | disposition home or self-care (01) ==
LOC: EC 12:15 → 5NMEDONC 15:38 → 4SSUR 17:25
PROVIDERS: ADMIT Hospitalist; ATTEND Hospitalist
DX: N17.9 Acute kidney failure, unspecified (principal); I12.9 Hypertensive chronic kidney disease with stage 1 through stage 4 chronic kidney disease, or unspecified chronic kidney disease; N18.4 Chronic kidney disease, stage 4 (severe); D63.1 Anemia in chronic kidney disease; N20.0 Calculus of kidney; G31.84 Mild cognitive impairment of uncertain or unknown etiology; D47.2 Monoclonal gammopathy; E83.52 Hypercalcemia; I25.10 Atherosclerotic heart disease of native coronary artery without angina pectoris; F51.04 Psychophysiologic insomnia; M15.9 Polyosteoarthritis, unspecified; Z79.899 Other long term (current) drug therapy; Z88.0 Allergy status to penicillin; Z88.6 Allergy status to analgesic agent; Z91.048 Other nonmedicinal substance allergy status; Z88.8 Allergy status to other drugs, medicaments and biological substances; Z95.5 Presence of coronary angioplasty implant and graft
CPT/HCPCS: 36415; 76770; 80053; 81001; 83735; 84100; 85025; 96360; 96361; 99284

== ENCOUNTER 2024-09-29 11:47 | Emergency (ER) | payer MEDICARE ==
--- NOTE | 2024-09-29 13:13 | ED ---
General Adult HPI - General Chief complaint: Arrhythmia/Palpitations Stated complaint: chest pain Time Seen by Provider: 09/29/24 12:24 Source: patient Mode of arrival: ambulatory Limitations: no limitations - History of Present Illness Initial comments: Dictation was produced using [employer] dictation software. please excuse any grammatical, word or spelling errors. Chief Complaint: 79-year-old female presents with 1 to 2 days of paresthesias History of Present Illness: Patient is 79-year-old female multiple comorbidities include coronary artery disease, diabetes, dyslipidemia. She was at her primary care physician's office today for what she describes as paresthesias to her left shoulder left arm. She was told to come to the ER for concerns of acute coronary syndrome. Patient denies any associate diaphoresis or nausea. Denies that it is pain. Denies that her symptoms are exacerbated with exertion. The ROS documented in this emergency department record has been reviewed and confirmed by me. Those systems with pertinent positive or negative responses have been documented in the HPI. All other systems are other negative and/or noncontributory. - Related Data Home Medications Medication Instructions Recorded Confirmed Isosorbide Mononitrate ER [Imdur] 30 mg PO DAILY 04/03/22 09/29/24 Metoprolol Succinate [Metoprolol 25 mg PO DAILY 04/03/22 09/29/24 Succinate ER] amLODIPine [Norvasc] 5 mg PO DAILY 04/03/22 09/29/24 Acetaminophen Tab [Tylenol Tab] 500 mg PO HS 09/29/24 09/29/24 Brain Strong Supplement 1 cap PO DAILY 09/29/24 09/29/24 Clopidogrel [Plavix] 75 mg PO HS 09/29/24 09/29/24 Multivitamins, Thera [Multivitamin 1 tab PO DAILY 09/29/24 09/29/24 (formulary)] Allergies Allergy/AdvReac Type Severity Reaction Status Date / Time celecoxib [From Celebrex] Allergy Unknown Verified 09/29/24 13:02 ezetimibe [From Vytorin] Allergy Unknown Verified 09/29/24 13:02 lavender (Lavandula Allergy Unknown Verified 09/29/24 13:02 angustifolia) Penicillins Allergy Unknown Verified 09/29/24 13:02 simvastatin [From Vytorin] Allergy Unknown Verified 04/08/25 13:02 Review of Systems ROS Statement: Those systems with pertinent positive or pertinent negative responses have been documented in the HPI. ROS Other: All systems not noted in ROS Statement are negative. Past Medical History Past Medical History: Coronary Artery Disease (CAD), Chest Pain / Angina, Diabetes Mellitus Additional Past Medical History / Comment(s): KIDNEY INSUFFICENCY History of Any Multi-Drug Resistant Organisms: None Reported Past Surgical History: Appendectomy, Joint Replacement Additional Past Surgical History / Comment(s): CARDIAC STENTS Past Anesthesia/Blood Transfusion Reactions: No Reported Reaction Past Psychological History: No Psychological Hx Reported Smoking Status: Never smoker Past Alcohol Use History: None Reported Past Drug Use History: None Reported General Exam - General Exam Comments Initial Comments: PHYSICAL EXAM: General Impression: Alert and oriented x3, not in acute distress HEENT: Normocephalic atraumatic, extra-ocular movements intact, pupils equal and reactive to light bilaterally, mucous membranes moist. Cardiovascular: Heart regular rate and rhythm Chest: Able to complete full sentences, no retractions, no tachypnea Abdomen: abdomen soft, non-tender, non-distended, no organomegaly Musculoskeletal: Pulses present and equal in all extremities, no peripheral edema Motor: no focal deficits noted Neurological: CN II-XII grossly intact, no focal motor or sensory deficits noted Skin: Intact with no visualized rashes Psych: Normal affect and mood Limitations: no limitations Course Vital Signs 09/29/24 09/29/24 11:50 14:47 Temperature 98.7 F 97.8 F Pulse Rate 86 60 Respiratory 16 18 Rate Blood Pressure 153/83 153/89 O2 Sat by Pulse 98 96 Oximetry EKG Findings - EKG Comments: EKG Findings:: My EKG interpretation: Ventricular rate 60, sinus rhythm, CT 190, QRS 90, QTc 388. No CT prolongation, no QTC prolongation, no ST or T-wave changes noted. Overall, this EKG is unremarkable Medical Decision Making - Medical Decision Making Was pt. sent in by a medical professional or institution (, PA, COREMAKER SUPERVISOR, urgent care, hospital, or custodial...) When possible be specific @ -No Did you speak to anyone other than the patient for history (EMS, parent, family, police, friend...)? What history was obtained from this source @ -No Did you review nursing and triage notes (agree or disagree)? Why? @ -I reviewed and agree with nursing and triage notes Were old charts reviewed (outside hosp., previous admission, EMS record, old EKG, old radiological studies, urgent care reports/EKG's, custodial records)? Report findings @ -No old charts were reviewed Differential Diagnosis (chest pain, altered mental status, abdominal pain women, abdominal pain men, vaginal bleeding, musculoskeletal, weakness, fever, dyspnea, syncope, headache, dizziness, GI bleed, back pain, seizure, CVA, palpatations, mental health)? @ -Differential Chest Pain: Stable Angina, Unstable Angina, STEMI, NSTEMI Aortic Dissection, Pneumothorax, Musculoskeletal, Esophageal Spasm GERD, Cholecystitis, Pancreatitis, Zoster, this is not meant to be an all-inclusive list. EKG interpreted by me (3pts min.). @ -None done X-rays interpreted by me (1pt min.). @ -Chest x-ray shows no acute processes CT interpreted by me (1pt min.). @ -None done U/S interpreted by me (1pt. min.). @ -None done What testing was considered but not performed or refused? (CT, X-rays, U/S, labs)? Why? @ -None What meds were considered but not given or refused? Why? @ -None Was smoking cessation discussed for >3mins.? @ -No Were there social determinants of health that impacted care today? How? (Ho melessness, low income, unemployed, alcoholism, drug addiction, transportation, low edu. Level, literacy, decrease access to med. care, residential, rehab)? @ -No Was there de-escalation of care discussed even if they declined (Discuss DNR or withdrawal of care, Hospice)? DNR status @ -No What co-morbidities impacted this encounter? (DM, HTN, Smoking, COPD, CAD, Cancer, CVA, ARF, Chemo, Hep., AIDS, mental health diagnosis, sleep apnea, morbid obesity)? @ -None Was patient admitted / discharged? Hospital course, mention meds given and route, prescriptions, significant lab abnormalities, going to OR and other pertinent info. @ -79-year-old female sent in from primary care physician's office for vague paresthetic type episodic symptoms in her left shoulder. She has had no symptoms of chest pain shortness of breath. She was seen here as an abundance of precaution by her primary care doctor due to her history of coronary artery disease. Patient otherwise has no complaints. Vital signs are stable. EKG is unremarkable. Laboratory evaluation is unremarkable. He was recommended the patient to be observed overnight for cardiac monitoring. She would prefer to be discharged requesting that the IV be removed. She understands that she could still be harboring a small heart attack and she should return to the emergency department as soon as possible should her symptoms acutely worsen otherwise patient given 1 dose of aspirin discharge. Did you discuss the management of the patient with other professionals (professionals i.e. , PA, COREMAKER SUPERVISOR, lab, RT, psych nurse, social secretary, director clinical data, teacher, revenue officer, special education case manager)? Give summary @ -No Was critical care preformed (if so, how long)? @ -No Undiagnosed new problem with uncertain prognosis? @ -No Drug Therapy requiring intensive monitoring for toxicity (Heparin, Nitro, Insulin, Cardizem)? @ -No Were any procedures done? @ -No Diagnosis/symptom? Acute, or Chronic, or Acute on Chronic? Uncomplicated (without systemic symptoms) or Complicated (systemic symptoms)? @ -Left shoulder paresthesias Side effects of treatment? @ -No Exacerbation, Progression, or Severe Exacerbation? @ -No Poses a threat to life or bodily function? How? (Chest pain, USA, NH, pneumonia, PE, COPD, DKA, ARF, appy, cholecystitis, CVA, Diverticulitis, Homicidal, Suicidal, threat to staff... and all critical care pts) @ -yes - Lab Data Result diagrams: 09/29/24 13:18 09/29/24 13:18 Lab Results 09/29/24 09/29/24 09/29/24 Range/Units 13:18 13:18 13:18 WBC 7.18 (4.50-10.00) 10*3/uL RBC 3.85 L (4.10-5.20) 10*6/uL Hgb 12.6 (12.0-15.0) g/dL Hct 35.0 L (37.2-46.3) % MCV 90.9 (80.0-97.0) fL MCH 32.7 H (27.0-32.0) pg MCHC 36.0 (32.0-37.0) g/dL Plt Count 197 (140-440) 10*3/uL MPV 9.7 (9.5-12.2) fL Immature Gran % (Auto) 0.3 % Neutrophils % 71.7 % Lymphocytes % 19.6 % Monocytes % 5.2 % Eosinophils % 2.2 % Basophils % 1.0 % Immature Gran # 0.02 (0.00-0.04) 10*3/uL Neutrophils # 5.15 (1.80-7.70) 10*3/uL Lymphocytes # 1.41 (0.90-5.00) 10*3/uL Monocytes # 0.37 (0.20-1.00) 10*3/uL Eosinophils # 0.16 (0.04-0.35) 10*3/uL Basophils # 0.07 (0.00-0.10) 10*3/uL PT 10.2 (10.0-12.5) sec INR 0.9 (<1.2) APTT 23.8 (22.0-30.0) sec Sodium 138 (137-145) mmol/L Potassium 4.0 (3.5-5.1) mmol/L Chloride 106 (98-107) mmol/L Carbon Dioxide 24 (22-30) mmol/L Anion Gap 8 mmol/L BUN 40 H (7-17) mg/dL Creatinine 2.44 H (0.52-1.04) mg/dL Est GFR (CKD-EPI)AfAm 21 (>60 ml/min/1.73 sqM) Est GFR (CKD-EPI)NonAf 18 (>60 ml/min/1.73 sqM) Glucose 133 H (74-99) mg/dL Calcium 10.6 H (8.4-10.2) mg/dL Magnesium 1.9 (1.6-2.3) mg/dL Total Bilirubin 0.9 (0.2-1.3) mg/dL AST 19 (14-36) U/L ALT 15 (4-34) U/L Alkaline Phosphatase 50 (38-126) U/L Troponin I (0.000-0.034) ng/mL Total Protein 6.7 (6.3-8.2) g/dL Albumin 4.2 (3.5-5.0) g/dL 09/29/24 Range/Units 13:18 WBC (4.50-10.00) 10*3/uL RBC (4.10-5.20) 10*6/uL Hgb (12.0-15.0) g/dL Hct (37.2-46.3) % MCV (80.0-97.0) fL MCH (27.0-32.0) pg MCHC (32.0-37.0) g/dL Plt Count (140-440) 10*3/uL MPV (9.5-12.2) fL Immature Gran % (Auto) % Neutrophils % % Lymphocytes % % Monocytes % % Eosinophils % % Basophils % % Immature Gran # (0.00-0.04) 10*3/uL Neutrophils # (1.80-7.70) 10*3/uL Lymphocytes # (0.90-5.00) 10*3/uL Monocytes # (0.20-1.00) 10*3/uL Eosinophils # (0.04-0.35) 10*3/uL Basophils # (0.00-0.10) 10*3/uL PT (10.0-12.5) sec INR (<1.2) APTT (22.0-30.0) sec Sodium (137-145) mmol/L Potassium (3.5-5.1) mmol/L Chloride (98-107) mmol/L Carbon Dioxide (22-30) mmol/L Anion Gap mmol/L BUN (7-17) mg/dL Creatinine (0.52-1.04) mg/dL Est GFR (CKD-EPI)AfAm (>60 ml/min/1.73 sqM) Est GFR (CKD-EPI)NonAf (>60 ml/min/1.73 sqM) Glucose (74-99) mg/dL Calcium (8.4-10.2) mg/dL Magnesium (1.6-2.3) mg/dL Total Bilirubin (0.2-1.3) mg/dL AST (14-36) U/L ALT (4-34) U/L Alkaline Phosphatase (38-126) U/L Troponin I 0.014 (0.000-0.034) ng/mL Total Protein (6.3-8.2) g/dL Albumin (3.5-5.0) g/dL Disposition Clinical Impression: Paresthesia Disposition: HOME SELF-CARE Condition: Fair Instructions (If sedation given, give patient instructions): Paresthesia (ED) Is patient prescribed a controlled substance at d/c from ED?: No Referrals: Tyrone Marquez MD [Primary Care Provider] - 1-2 days Time of Disposition: 14:49
[2024-09-29 13:28] LABS: Basophils # (A) 0.07 10*3/uL (0.00-0.10); Eosinophils # (A) 0.16 10*3/uL (0.04-0.35); Eosinophils % (A) 2.2 %; HGB 12.6 g/dL (12.0-15.0); Lymphocytes # (A) 1.41 10*3/uL (0.90-5.00); Lymphocytes % (A) 19.6 %; MCH 32.7 pg (27.0-32.0); MCV 90.9 fL (80.0-97.0); Mean Platelet Volume 9.7 fL (9.5-12.2); Monocytes # (A) 0.37 10*3/uL (0.20-1.00); Monocytes % (A) 5.2 %; Neutrophils # (A) 5.15 10*3/uL (1.80-7.70); Neutrophils % (A) 71.7 %; Platelet Count 197 10*3/uL (140-440); RBC 3.85 10*6/uL (4.10-5.20); RDW 12.3 % (11.5-14.5); WBC 7.18 10*3/uL (4.50-10.00)
[2024-09-29 13:39] LABS: INR 0.9 (<1.2); Partial Thromboplastin Time 23.8 sec (22.0-30.0); Prothrombin Time 10.2 sec (10.0-12.5)
[2024-09-29 13:48] LABS: ALT 15 U/L (4-34); AST 19 U/L (14-36); African American GFR (CKD) 21 (>60 ml/min/1.73 sqM); Albumin 4.2 g/dL (3.5-5.0); Alkaline Phosphatase 50 U/L (38-126); Anion Gap 8 mmol/L; Blood Urea Nitrogen 40 mg/dL (7-17); Calcium 10.6 mg/dL (8.4-10.2); Carbon Dioxide 24 mmol/L (22-30); Chloride 106 mmol/L (98-107); Glucose 133 mg/dL (74-99); Magnesium 1.9 mg/dL (1.6-2.3); Non-African American GFR(CKD) 18 (>60 ml/min/1.73 sqM); Sodium 138 mmol/L (137-145); Total Bilirubin 0.9 mg/dL (0.2-1.3); Total Protein 6.7 g/dL (6.3-8.2)
[2024-09-29 14:48] VITALS: BP 153/89; PULSE 60; RESP 18; TEMP 97.8
[2024-09-29] MEDS: ASPIRIN 81 MG PO STA (14:57)
--- NOTE | 2024-09-29 15:18 | XR ---
EXAMINATION TYPE: XR chest 2V DATE OF EXAM: 09/29/2024 1:39 PM COMPARISON: 04/03/2022 CLINICAL INDICATION: Female, 79 years old with history of Chest Pain, TECHNIQUE: XR chest 2V view(s) obtained. FINDINGS: The heart size is normal. The pulmonary vasculature is normal. The lungs are clear. IMPRESSION: 1. No acute pulmonary process. [facility], , 09/29/2024 3:15 PM
== END 2024-09-29 15:01 | disposition home or self-care (01) ==
LOC: EC 11:47
DX: R20.2 Paresthesia of skin (principal); Z88.6 Allergy status to analgesic agent; Z88.0 Allergy status to penicillin; Z88.8 Allergy status to other drugs, medicaments and biological substances
CPT/HCPCS: 36415; 71046; 80053; 83735; 84484; 85025; 85610; 85730; 93005; 99285